=== PATIENT | male | born 1970 | race Caucasian/White ===

== ENCOUNTER 2016-08-26 08:13 | Inpatient (IN) | payer BC, OTHER ==
--- NOTE | 2016-08-20 16:37 | HP ---
HISTORY AND PHYSICAL: DATE OF SURGERY: 08/26/16 PROCEDURE: Left total hip arthroplasty. CHIEF COMPLAINT: Left hip pain. HISTORY OF PRESENT ILLNESS: Mr. Renteria is a 45-year-old gentleman who complains of left hip pain. Charlene mathur has failed conservative management and has elected to proceed with a left total hip arthroplasty w [facility] is scheduled for 08/26/16. PAST MEDICAL HISTORY: Asthma, hypothyroidism, and sleep apnea. PAST SURGICAL HISTORY: Deviated septum surgery x3, right elbow surgery, right knee arthroscopy x2, and appendectomy. CURRENT MEDICATIONS: 1. Topiramate. 2. Duloxetine. 3. Levothyroxine. 4. Montelukast. 5. Magnesium oxide. 6. Riboflavin. 7. Celebrex. 8. Oxycodone. ALLERGIES: No known drug allergies. FAMILY HISTORY: Rheumatoid arthritis, cancer and heart disease. SOCIAL HISTORY: He is a 45-year-old gentleman, he lives with his . 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 He does not smoke, use drugs or alcohol. REVIEW OF SYSTEMS: A complete 14-point review of systems is reviewed with the patient, it is positi ve for hypothyroidism. PHYSICAL EXAMINATION GENERAL: He is well developed, well nourished, he is in no acute distress. VITAL SIGNS: He stands 6 feet 1 inch tall, weighs 268 pounds. Blood pressure is 132/70, his heart rate is 76. HEENT: Normocephalic, atraumatic. NECK: Supple. No palpable lymph nodes. Trachea is midline. PULMONARY: Lungs are clear to auscultation bilaterally. No wheezes, rhonchi, or rales. CARDIO: Regular rate and rhythm. Strong S1 and S2. No murmurs, gallops, or rubs. No peripheral ed pal. ABDOMEN: Soft, nontender, and nondistended. MUSCULOSKELETAL: Left lower extremity, the skin is intact. He walks with a slightly antalgic type gait, favoring his left leg. He has limited internal and external rotation of his left hip. His lo wer extremity muscle group strengths are intact at 5/5. He has 2+ dorsalis pedis pulses and intact sensation. NEUROLOGIC: He is alert and oriented x3. Cranial nerves II through XII are intact. ASSESSMENT AND PLAN: Mr. Renteria is a 45-year-old gentleman with complaints of left hip pain. He gonzalez s failed conservative management and has elected to proceed with a left total hip arthroplasty. His surgery is scheduled for 08/26/[address] Ellsworth discussed the risks and benefits of the surgery at today's visit and all of his questions were answered. Coumadin, Percocet, and Colace we re sent to his pharmacy for postoperative pain control and DVT prophylaxis. He will follow up with Dr. Ellsworth 10 to 14 days after the surgery. TERESITA BINGHAM [id number]/[facility] #: [id number]
[~2016-08-26 08:13] MED LIST: Buffered Lidocaine 1% SYRIN* 3 ML/SYR SYRINGE INTRADERM ONE; Famotidine IV* 10 MG/ML 2 ML (20 mg) IV ONE; Famotidine IV* 10 MG/ML 2 ML (20 mg) ONE; Metoclopramide TAB* 10 MG ONE; Metoclopramide TAB* 10 MG PO ONE; ceFAZolin 2 GM PREMIX(*) 2 GM/50 ML BAG IVPB ONE
[2016-08-26] MEDS ORDERED: Propofol* 10 MG/ML 20 ML BTL IV PUSH ONE (09:44)
[2016-08-26] MEDS ORDERED: Dexamethasone IV* 4 MG/ML 1 ML (4 MG) ONE (09:44)
[2016-08-26] MEDS ORDERED: Midazolam* 1 MG/ML 2 ML VIAL (2 MG) ONE ×2 (09:44→10:41)
[2016-08-26] MEDS ORDERED: Propofol* 500 MG/50 ML BTL ONE (09:44)
[2016-08-26] MEDS ORDERED: Ketorolac INJ* 30 MG/ML 1 ML VIAL ONE (09:44)
[2016-08-26] MEDS ORDERED: Morphine PF AMP (0.5MG/ML)* 5 MG/10 ML AMP ONE (09:44)
[2016-08-26] MEDS ORDERED: Lidocaine 2% PF* 5 ML VIAL ONE (09:44)
[2016-08-26] MEDS ORDERED: fentaNYL* 50 MCG/ML 2 ML VIAL (100 MCG VIAL) ONE (09:44)
[2016-08-26] MEDS ORDERED: KETAMINE HCL* 50 MG/ML 10 ML VIAL ONE (09:44)
[2016-08-26] MEDS ORDERED: Bupivacaine 0.5% SDV PF* 30 ML VIAL ONE ×2 (09:44→11:56)
[2016-08-26] MEDS ORDERED: Ondansetron INJ* 2 MG/ML VIAL ONE (09:44)
[2016-08-26] MEDS ORDERED: Midazolam* 1 MG/ML 5 ML VIAL (5 MG) ONE (09:44)
[2016-08-26] MEDS ORDERED: ceFAZolin 1 GM in Dextrose (*) 1 GM/50 ML BAG IVPB ONE (10:46)
[2016-08-26] MEDS ORDERED: EPHEDrine (Pressors)* 50 MG/ML VIAL ONE (11:08)
[2016-08-26] MEDS ORDERED: Atropine 1MG/ML INJ* 1 ML VIAL ONE (11:08)
[2016-08-26] MEDS ORDERED: Phenylephrine IV* 40 MCG/ML 10 ML SYRINGE ONE (11:17)
[2016-08-26] MEDS ORDERED: Phenylephrine INJ* 10 MG/ML 1 ML VIAL (10 MG) ONE (11:37)
[2016-08-26] MEDS ORDERED: Ondansetron INJ* 2 MG/ML VIAL IV PRN ×3 (11:56→14:19)
[2016-08-26] MEDS ORDERED: Phenylephrine INJ* 50 MG in NS 0.9% 250 ML* 245 ML IV PRN (11:56)
[2016-08-26] MEDS ORDERED: fentaNYL* 50 MCG/ML 2 ML VIAL (100 MCG VIAL) IV PRN (11:56)
[2016-08-26] MEDS ORDERED: diPHENhydraMINE IV* 50 MG/ML 1 ml VIAL (BENADRYL) IV PRN ×2 (12:15→14:19)
[2016-08-26] MEDS ORDERED: Naloxone* 0.4 MG/ML 1 ML VIAL IV PRN (12:15)
[2016-08-26] MEDS ORDERED: Ketorolac INJ* 30 MG/ML 1 ML VIAL IV PRN (12:15)
[2016-08-26] MEDS ORDERED: oxyCODONE/Acetamin 5/325 MG* TAB PO PRN ×2 (12:15)
--- NOTE | 2016-08-26 13:19 | RAD ---
Indication: Left hip replacement Single view of the left hip taken in the operating room demonstrates acetabular cup in place. The femoral reamer is in place. IMPRESSION: Single intraoperative view of the left hip was obtained for alignment.
[2016-08-26] MEDS ORDERED: Acetaminophen TAB* 325 MG PO PRN (14:14)
[2016-08-26] MEDS ORDERED: Ondansetron TAB* 4 MG PO PRN (14:19)
[2016-08-26] MEDS ORDERED: Morphine INJ* 10 MG/ML 1 ML SYRINGE IV PRN (14:19)
[2016-08-26] MEDS ORDERED: diPHENhydraMINE PO* 25 MG PO PRN (14:19)
[2016-08-26] MEDS ORDERED: Polyethylene Glycol 3350* 17 GM PACKET PO PRN (14:19)
[2016-08-26] MEDS ORDERED: oxyCODONE TAB* 5 MG TAB PO PRN (14:19)
[2016-08-26] MEDS ORDERED: LACTULOSE* 30 ML UDC PO PRN (14:19)
[2016-08-26] MEDS ORDERED: Bisacodyl SUPP* 10 MG SUPP PR PRN (14:19)
[2016-08-26 14:25] LABS: Hematocrit 31 % (42-52); Hemoglobin 10.3 g/dl (14.0-18.0)
[2016-08-26] MEDS ORDERED: Albuterol 2.5 MG/3 ML NEB.SOL* (0.083%) INH PRN (14:56)
--- NOTE | 2016-08-26 15:16 | RAD ---
INDICATION: Left hip arthroplasty COMPARISON: June 18, 2016 TECHNIQUE: An AP view of the pelvis and AP views of the hip in neutral and abducted position were obtained FINDINGS: Bones: There are no acute bony findings. Joint spaces: There is left hip arthroplasty. The prosthesis appears well seated. There is hypertrophic change about the right acetabulum with several small detached osteophytes SI joints/symphysis: The SI joints and symphysis are intact. Other: None IMPRESSION: LEFT HIP ARTHROPLASTY
[2016-08-26] MEDS ORDERED: Warfarin TAB(*) 6 MG PO ONE (17:00)
[2016-08-26] MEDS: ceFAZolin 1 GM in Dextrose (*) 1 GM/50 ML BAG IVPB SCH (19:08)
[2016-08-26] MEDS ORDERED: LR IV ONE (20:04)
[2016-08-26] MEDS ORDERED: DiMENhydriNATE IV* 50 MG/ML VIAL IV PUSH ONE (20:04)
[2016-08-26] MEDS: Magnesium Hydroxide LIQ* 30 ML UDC PO SCH (21:05)
[2016-08-26] MEDS: Gabapentin CAP(*) 400 MG PO SCH (21:05)
[2016-08-26] MEDS: Docusate CAP* 100 MG PO SCH (21:05)
[2016-08-26] MEDS: Topiramate TAB(*) 25 MG PO SCH (21:05)
[2016-08-26] MEDS: DULoxetine DR CAP* 20 MG CAP.DR PO SCH (21:06)
[2016-08-26 21:31] LABS: Hematocrit 30 % (42-52); Hemoglobin 9.6 g/dl (14.0-18.0)
--- NOTE | 2016-08-26 22:05 | CONS ---
CONSULTATION REPORT: DATE OF CONSULT: 08/26/16 PRIMARY CARE PROVIDERS: Dr. Wily Muller and Marta Mejia NP. ATTENDING PHYSICIAN WHILE IN THE HOSPITAL: Yessenia Ortiz MD (report dictated by Deo Singh NP). REQUESTING PHYSICIAN IN CONSULT: Dr. Ellsworth. REASON FOR MEDICAL CONSULTATION: Evaluation of the patient's comorbid medical conditions. HISTORY OF PRESENT ILLNESS: Mr. Renteria is a 45-year-old male patient. He has a history of RONNA, hypothyroidism, asthma, and a history of migraines. He comes in to the orthopedic services today for an elective total hip replacement. He according to the orthopedics notes has been having pain in his left hip for sometime and he was failing conservative management of the pain and it was felt that he would benefit from elective total hip replacement which he underwent today. During the case, it was noted that he did have a fair amount of bleeding and because of this, we were also asked to evaluate. He does carry a history of RONNA, hypothyroidism, asthma, and migraines. He was evaluated in the PACU. He states he is feeling well, just feels drowsy. Denies feeling lightheaded. Denies having any dizziness. Denies having any chest pain. He says he does not feel short of breath and he says he does not feel like he is going to pass out. He states that he does not feel hungry or nauseous. Again, because of his medical complexity and the increased amount of EBL during the case, we were asked to evaluate in consult. PAST MEDICAL HISTORY: Significant for: 1. RONNA. 2. Hypothyroidism. 3. Asthma. 4. Migraines. SURGICAL HISTORY: 1. Just had a right total hip replacement done today. 2. He also has a history of appendectomy. 3. He has had right elbow surgery. 4. He has also had 2 knee arthroscopies. HOME MEDICATIONS: According to the list provided include: 1. Singulair 10 mg daily. 2. Magnesium oxide 100 mg p.o. b.i.d. 3. Synthroid 75 mcg daily. 4. Neurontin 400 mg at bedtime. 5. Cymbalta 20 mg daily at bedtime. 6. Percocet 1 tablet every 4 hours as needed. 7. Topamax 50 mg p.o. daily. 8. Riboflavin 400 mg daily. 9. Celebrex 100 mg p.o. b.i.d. ALLERGIES TO MEDICATIONS: Include no known drug allergies. FAMILY HISTORY: His mother from heart disease and his father from cancer. SOCIAL HISTORY: He does not smoke, does not drink. He is . Surrogate decision maker is his . REVIEW OF SYSTEMS: There is no documented fever. He denied any significant weight change. There was no double vision. He denies having any ear discharge. There is no rhinorrhea. No sore throat. No thyroid enlargement. Denies having any chest pain. There is no orthopnea. There is no nocturnal dyspnea. There is no abdominal pain. He denies having any nausea. He denies having any vomiting. No dysuria. No frequency. No loss of consciousness. No pruritus. No skin ulcerations. Review of 14 systems completed, all others negative. PHYSICAL EXAM: Vital Signs: Blood pressure 95/65 with a pulse of 92, respirations 14, O2 sat 96%, and temperature was 97.5. General: At this time, Mr. Renteria is a 45-year-old male patient. He does appear to be in any acute distress. He is sitting in the ER stretcher. HEENT: Head atraumatic and normocephalic. Eyes: EOMs are intact. Sclerae are anicteric and not pale. Throat: Oral mucosa appears to be moist. No oropharyngeal erythema. Neck: Supple. Heart: Sounds S1, S2. Regular rate and rhythm. No murmurs, rubs, or gallops. Lungs: Clear to auscultation bilaterally. No wheezes, rales, or rhonchi. Abdomen: Soft, flat, nontender. Bowel sounds present. Extremities: Distal CSM checks are intact. He is moving the upper extremities with 5/5 strength. The lower extremities are in a hip immobilizer pillow. Neurologically, he is awake, he is alert, and he is oriented x3. Press Machine Operator are equal. Tongue midline. No gross focal deficits. Skin is intact with the exception he has an incision to the left hip which is covered with an ABD and is clean, dry, and intact. DIAGNOSTIC STUDIES/LAB DATA: His hemoglobin is 10.3, hematocrit is 10. The preoperative labs reveal INR 1.02, PTT of 3.35. He was O negative. His WBC was 7.5, RBC of 5.14, hemoglobin 14.8, hematocrit of 40, platelet count of 246. His sodium was 139, potassium was 3.8, chloride 106, bicarb 25, BUN 12, creatinine 1.1, albumin 4.0. Preoperative EKG showed a right bundle branch block with a rate of 61. Preoperative chest x-ray showed no active cardiopulmonary disease. Old medical records were reviewed. ASSESSMENT AND PLAN: Mr. Renteria is a 45-year-old male patient coming in to the orthopedic services today for an elective left total hip replacement. Hospitalist service was asked to evaluate in consult. Recommendations at this point are: 1. Status post left total hip replacement: At this point, I will defer the management to Dr. Ellsworth and her team. We will follow his H and H closely and transfuse as needed. He appears to be asymptomatic, but we will monitor him closely. 2. Obstructive sleep apnea: I would recommend putting him on continuous pulse ox for at least 24 hours and continuing the CPAP. 3. Hypothyroidism: Continue medications as prescribed. 4. Asthma: I did order p.r.n. albuterol. 5. Migraines: Continue with his current medical regimen. 6. DVT prophylaxis: Defer to the primary team. 7. Fluids, electrolytes, and nutrition: I would recommend a regular diet. 8. Code status: Full code. TIME SPENT: Time spent on the consult was 60 minutes; greater than half the time was spent [id number] with the patient obtaining my history and physical, other half the time spent going over the plan of care with the patient and implementing plan of care. I did discuss the plan of care with my attending, Dr. Ortiz; she is in agreement. DEO SINGH NP CC: Dr. Wily Muller; Marta Mejia NP; Dr. Ellsworth* [id number]/[facility] #: [id number] [facility] NETWORKAlexia
[2016-08-27] MEDS: ceFAZolin 1 GM in Dextrose (*) 1 GM/50 ML BAG IVPB SCH ×2 (04:01→10:17)
[2016-08-27] MEDS: oxyCODONE/Acetamin 5/325 MG* TAB PO PRN ×5 (04:03→22:25)
[2016-08-27 06:53] LABS: Hematocrit 25 % (42-52); Hemoglobin 8.2 g/dl (14.0-18.0)
[2016-08-27 07:13] LABS: BUN/Creatinine Ratio 10.4 (8-20); Calcium 7.8 mg/dL (8.6-10.3); EGFR African American 41.2 (>60); Potassium 4.2 mmol/L (3.5-5.0)
--- NOTE | 2016-08-27 07:54 | PN ---
Progress Note - Progress Note SOAP: Subjective: Pt. is feeling weak and dizzy this morning. Objective: LLE - dressing changed, mod amount ss drainage on dressing, compression dressing applied. thigh swollen but soft. distally nvi. Vital Signs: Temp Pulse Resp BP Pulse Ox 98.2 F 90 16 93/49 94 08/27/16 03:37 08/27/16 03:37 08/27/16 06:03 08/27/16 03:37 08/27/16 03:37 Laboratory Results - last 24 hr 08/26/16 08/26/16 08/27/16 14:20 21:16 06:14 Hgb 10.3 L 9.6 L 8.2 L Hct 31 L 30 L 25 L INR (Anticoag Therapy) Sodium Potassium Chloride Carbon Dioxide Anion Gap BUN Creatinine Est GFR ( Amer) Est GFR (Non-Af Amer) BUN/Creatinine Ratio Glucose Calcium 08/27/16 08/27/16 06:18 06:18 Hgb Hct INR (Anticoag Therapy) 1.21 H Sodium 135 Potassium 4.2 Chloride 104 Carbon Dioxide 25 Anion Gap 6 BUN 23 Creatinine 2.22 H Est GFR ( Amer) 41.2 Est GFR (Non-Af Amer) 32.0 BUN/Creatinine Ratio 10.4 Glucose 158 H Calcium 7.8 L Assessment: 45 yo M pod 1 s/p LTHA with abnormally large amount of intraop bleeding. Plan: wbat with post hip precautions pt/ot 2 u prbc now will d/w hematology, possible consult inpatient vs outpatient. d/c lovenox
[2016-08-27] MEDS: Magnesium Hydroxide LIQ* 30 ML UDC PO SCH ×2 (08:02→21:45)
[2016-08-27] MEDS: Levothyroxine TAB* 75 MCG TAB PO SCH (08:04)
[2016-08-27] MEDS: Docusate CAP* 100 MG PO SCH ×2 (08:46→22:01)
--- NOTE | 2016-08-27 12:34 | OP ---
OPERATIVE REPORT: DATE OF OPERATION: 08/26/16 DATE OF : 68 SURGEON: Ashley Ellsworth MD BRICKMASON CONTRACTOR: TERESITA Graham ANESTHESIOLOGIST: Dr. Kraus. ANESTHESIA: Spinal. PRE-OP DIAGNOSIS: Severe end-stage degenerative osteoarthritis of the left hip joint. POST-OP DIAGNOSIS: Severe end-stage degenerative osteoarthritis of the left hip joint. OPERATIVE PROCEDURE: Left total hip arthroplasty. COMPLICATIONS: None. ESTIMATED BLOOD LOSS: 2000 cc. SPECIMENS: Femoral head and acetabular reaming, sent to pathology. HARDWARE: This is a Alburtis uncemented total hip arthroplasty hardware. For the acetabular cup, a 58 Tritanium Cluster Hole Shell 120 mm screw was used. A 40F 0- degree Trident X3 liner. An Accola de TMZF size 4.5 with 127-degree neck was used for the femoral stem. A 40 +0 Biolox ceramic femoral head. INDICATIONS: Brief History/Indication: Mr. Renteria is a 45-year-old gentleman with years of increasi ngly severe left hip pain. He failed conservative treatment with antiinflammatories, pain medicatio n, intraarticular injection, and physical therapy. Radiographs confirmed end-stage arthritis with f emoral acetabular impingement. Due to decreased quality of life and chronic pain, the patient elect ed to have a left total hip arthroplasty. Informed consent was obtained from the patient. He understood the risks of the procedure included b ut were not limited to bleeding, infection, damage to nearby structures, continued pain, need for fu rther surgery, intraoperative fracture, nerve palsy, hardware failure or loosening, dislocation, leg length discrepancy, stroke, heart attack, blood clot, and . His wished to proceed. FINDINGS: Intraoperative Findings: Intraoperatively, the patient had extremely tight gluteus tendo n, which made presentation of the acetabulum and retraction very difficult. He had end-stage arthri tis of both the femoral head and acetabulum with significant amount of osteophyte formation around t he acetabulum. The acetabulum was shallow. The patient was also noted to have significant bleeding compared to normal experience. DESCRIPTION OF PROCEDURE: Mr. Renteria was identified in the preanesthesia unit. His left lower extre mity was marked as the correct operative site. Informed consent was signed and placed in the chart. The patient was taken to the operating room and placed under spinal anesthesia. Porter catheter wa s placed. The patient was placed in the right lateral decubitus position on the PEG board and all b selena prominences were well padded. Left lower extremity was prepped and dapped in the usual sterile fashion. Preop time-out was made to correctly identify the patient side and site. Appropriate perioperative antibiotics were given within 1 hour of incision. A 15- cm posterior inci tatianna was made with a 10 blade and carried down to the lateral fascial layer. Immediately, it was ev ident that the patient bled more than the average patient. Lateral fascial layer was incised in tisha e with the skin incision. Charnley retractor was placed. The piriformis and conjoined tendons were identified and elevated off the posterolateral femur using electrocautery. These were tagged with two #5 Ethibond. Next electrocautery was used to make a sta ndard posterolateral capsular flap and this was also tagged with two #5 Ethibond. The hip was caref ully dislocated. Lesser trochanter to the center of the femoral head measured 53 mm. Oscillating sa w was used to make the appropriate femoral neck cut. Femoral head was carefully removed and sent to pathology. After appropriate placement of retractors, the acetabulum was visualized. The greater trochanter was quite posterior and it was difficult to retract the femur anteriorly. Long-handled k nife was used to remove any remaining labrum from the acetabular rim. A significant amount of osteo phyte formation around the superior acetabulum and anterior acetabulum was noted. The acetabulum wa s noted to be quite shallow. The acetabulum was sequentially reamed up to a size 57. The 57 trial had satisfactory position and stability. A 58 cluster hole Tritanium shell was chosen as the final implant. This was impacted into the acetabulum without difficulty. There was a stable cup. Satisf actory anteversion and abduction angle. A 20-mm screw was placed in the superior posterior quadrant for extra stability. A 40F of 0-degree Trident X3 polyethylene liner was chosen. This was impacte d into the acetabular cup without difficulty. Stability of the liner was checked and rechecked and n oted to be stable. Attention was next turned to preparation of the proximal femur. Retractors were placed and presenta tion of the proximal femur was made quite difficult by the patient's anatomy. Box cut osteotome and canal finder were used to enter the proximal femur. The femur was sequentiall y broached to a size 4.5, which had excellent fit. A 127- degree neck trial was chosen with a 40 +0 femoral head trail. The hip was reduced and taken through range of motion. The hip was stable in all positions. There was approximate leg length and good soft tissue tension. The hip was carefully dislocated. All trials were carefully removed. Final implant chosen was an A ccolade TMZF size 4.5 with a 127-degree neck. This was impacted into the femoral canal without diff iculty. There was satisfactory stability and anteversion. A 40 +0 ceramic Biolox delta head and sl eeve were chosen. These were impacted on to the femoral neck without difficulty. Hip was reduced and the hip was stable in all positions. The hip was copiously irrigated with steri le saline. Previously tagged capsule and tendons were reapproximated through the posterolateral fem ur through 2 trochanteric drill holes. The posterior capsular repair was excellent. The hip was onc e again copiously irrigated with sterile saline. The lateral fascial layer was closed using interru pted #1 Vicryl's. The rest of the incision was closed in a layered fashion using 0 and 2-0 Vicryl's . Skin was closed using running 3-0 Monocryl and Dermabond. Adaptic, 4x4's, and paper tape were us ed to cover the incision. The patient's anesthesia was reversed without difficulty. He was taken to the PACU in stable condit ion. Intended weightbearing will be weightbearing as tolerated with posterior hip precautions. Int ended DVT prophylaxis will likely be aspirin. I will avoid Lovenox due to the patient's bleeding ten dency intraoperatively. We will check the hematocrit in PACU. Of note, I will likely be referring the patient for hematology consult as an outpatient as he likely has an undiagnosed bleeding disorder. [id number]/[facility] #: [id number]
--- NOTE | 2016-08-27 13:32 | PN ---
Subjective Date of Service: 08/27/16 Interval History: Patient seen this morning. Says he felt a bit dizzy this morning but this is improving with transfusion. Hip feels "sore". States he has had surgeries in the past including laporoscopic appendectomy with no bleeding issues that he is aware of. Did note that last fall he had a health screening at his work and after a finger prick had some prolonged bleeding and was told his blood is "thin ". Family History: Unchanged from Admission Social History: Unchanged from Admission Past Medical History: Unchanged from Admission Objective Active Medications: Acetaminophen (Tylenol Tab*) 650 mg PO Q4H PRN Albuterol (Ventolin 2.5 Mg/3 Ml Neb.Elizabeth*) 2.5 mg INH Q2H PRN Bisacodyl (Dulcolax Supp*) 10 mg VT DAILY PRN Diphenhydramine HCl (Benadryl Iv*) 12.5 mg IV Q6H PRN Diphenhydramine HCl (Benadryl Po*) 25 mg PO Q6H PRN Docusate Sodium (Colace Cap*) 100 mg PO BID DELVIS Duloxetine HCl (Cymbalta Cap*) 20 mg PO BEDTIME DELVIS Gabapentin (Neurontin Cap(*)) 400 mg PO BEDTIME DELVIS Lactated Ringer's (Lactated Ringers 1000 Ml Bag*) 1,000 mls @ 100 mls/hr IV PER RATE DELVIS Lactulose (Lactulose*) 30 ml PO Q6H PRN Levothyroxine Sodium (Synthroid Tab*) 75 mcg PO DAILY DELVIS Magnesium Hydroxide (Milk Of Magnesia Liq*) 30 ml PO BID DELVIS Morphine Sulfate (Morphine Inj (Syringe)*) 5 mg IV Q2H PRN Ondansetron HCl (Zofran Inj*) 4 mg IV Q6H PRN Ondansetron HCl (Zofran Tab*) 4 mg PO Q6H PRN Oxycodone HCl (Roxycodone Tab*) 10 mg PO Q4H PRN Oxycodone/Acetaminophen (Percocet 5/325 Tab*) 2 tab PO Q4H PRN Pharmacy Profile Note (Coumadin Daily Reminder*) 1 note FOLLOW UP 1700 DELVIS Polyethylene Glycol/Electrolytes (Miralax*) 17 gm PO DAILY PRN Topiramate (Topamax(*)) 50 mg PO BEDTIME DELVIS Warfarin Sodium (Coumadin Tab(*)) 6 mg PO ONCE@1700 ONE Vital Signs 08/26/16 08/26/16 08/26/16 14:08 14:10 14:15 Temperature 97.5 F Pulse Rate 89 88 89 Respiratory 16 16 16 Rate Blood Pressure 101/64 101/66 93/61 (mmHg) O2 Sat by Pulse 98 97 97 Oximetry 08/26/16 08/26/16 08/26/16 19:58 20:00 20:15 Temperature 97.1 F 97.8 F Pulse Rate 88 86 Respiratory 16 17 16 Rate Blood Pressure 86/55 97/57 (mmHg) O2 Sat by Pulse 98 97 97 Oximetry 08/27/16 08/27/16 10:54 13:21 Temperature 98.2 F Pulse Rate 88 Respiratory 18 18 Rate Blood Pressure 101/53 (mmHg) O2 Sat by Pulse 93 Oximetry Oxygen Devices in Use Now: None Appearance: Middle-aged, M, laying in bed in NAD Eyes: No Scleral Icterus Ears/Nose/Mouth/Throat: Mucous Membranes Moist Neck: NL Appearance and Movements; NL JVP Respiratory: Symmetrical Chest Expansion and Respiratory Effort, Clear to Auscultation Cardiovascular: NL Sounds; No Murmurs; No JVD, RRR Abdominal: NL Sounds; No Tenderness; No Distention Lymphatic: No Cervical Adenopathy Extremities: No Edema, - - LLE with dressing in place, c/d/i Skin: No Rash or Ulcers Neurological: Alert and Oriented x 3 Lines/Tubes/Other Access: Clean, Dry and Intact Porter Result Diagrams: 08/27/16 06:14 08/27/16 06:18 Assess/Plan/Problems-Billing Assessment: 45 yo M with hx of obesity, RONNA, hypothyroidism, asthma, migraines s/p R CHARANJIT, course complicated by excessive bleeding and TAURUS - Patient Problems (1) S/P total hip arthroplasty Current Visit: Yes Comment: POD #1, management as per ortho (2) Acute blood loss anemia Current Visit: Yes Comment: EBL 2000 ml during surgery. Hb down to 8.2 from 14.8 as outpatient. Receiving 2 units currently, will continue to monitor. Dr. Ellsworth to get in touch with hematology regarding ?bleeding disorder. Patient had outpatient INR, PT and PTT that were WNL, will defer further work-up to Hematology. (3) TAURUS (acute kidney injury) Current Visit: Yes Comment: Creatinine 2.2 today form baseline 1.1 on outpatient labs. Likely 2/2 blood loss. Receiving 2u PRBC, agree with continued LR. Monitor UOP. (4) RONNA (obstructive sleep apnea) Current Visit: Yes Comment: continue CPAP (5) Hypothyroidism Current Visit: Yes Comment: Continue synthroid
[2016-08-27] MEDS ORDERED: Enoxaparin(*) 30 MG/0.3 ML SYR SUBCUT SCH (15:00)
[2016-08-27] MEDS ORDERED: Warfarin TAB(*) 6 MG PO ONE (17:00)
[2016-08-27] MEDS: DULoxetine DR CAP* 20 MG CAP.DR PO SCH (22:01)
[2016-08-27] MEDS: Topiramate TAB(*) 25 MG PO SCH (22:02)
[2016-08-27] MEDS: Gabapentin CAP(*) 400 MG PO SCH (22:02)
[2016-08-28] MEDS: oxyCODONE/Acetamin 5/325 MG* TAB PO PRN ×5 (02:30→22:05)
[2016-08-28 07:52] LABS: Hematocrit 26 % (42-52); Hemoglobin 8.6 g/dl (14.0-18.0)
[2016-08-28 08:11] LABS: BUN/Creatinine Ratio 10.7 (8-20); Calcium 7.9 mg/dL (8.6-10.3); EGFR African American 40.8 (>60); EGFR Non-African American 31.7 (>60); Potassium 3.5 mmol/L (3.5-5.0)
[2016-08-28] MEDS: Levothyroxine TAB* 75 MCG TAB PO SCH (08:29)
[2016-08-28] MEDS: Docusate CAP* 100 MG PO SCH ×2 (08:29→22:00)
[2016-08-28] MEDS: Magnesium Hydroxide LIQ* 30 ML UDC PO SCH ×2 (09:08→22:02)
--- NOTE | 2016-08-28 09:54 | PN ---
Progress Note - Progress Note SOAP: Subjective: Pt. is alert, feeling better today. Objective: LLE - dressing c/d/i. distally nvi. thigh swollen but compressible. Vital Signs: Temp Pulse Resp BP Pulse Ox 98.2 F 81 16 106/60 93 08/28/16 07:37 08/28/16 07:37 08/28/16 08:29 08/28/16 07:37 08/28/16 07:37 Laboratory Results - last 24 hr 08/26/16 08/28/16 08/28/16 21:16 07:32 07:32 Hgb 8.6 L Hct 26 L INR (Anticoag Therapy) 1.63 H Sodium Potassium Chloride Carbon Dioxide Anion Gap BUN Creatinine Est GFR ( Amer) Est GFR (Non-Af Amer) BUN/Creatinine Ratio Glucose Calcium Blood Type O Positive Antibody Screen Negative Crossmatch See Detail 08/28/16 07:32 Hgb Hct INR (Anticoag Therapy) Sodium 136 Potassium 3.5 Chloride 104 Carbon Dioxide 26 Anion Gap 6 BUN 24 Creatinine 2.24 H Est GFR ( Amer) 40.8 Est GFR (Non-Af Amer) 31.7 BUN/Creatinine Ratio 10.7 Glucose 103 H Calcium 7.9 L Blood Type Antibody Screen Crossmatch Assessment: 45 yo M pod 2 s/p LTHA Plan: wbat with post hip precautions. pt/ot no lovenox 4 mg coumadin tonight, goal inr 2.0. d/w Dr. Boyer, she will see him as outpatient for possible bleeding disorder and agrees with coumadin hct stable plan d/c to home tomorrow with vns
--- NOTE | 2016-08-28 11:19 | PN ---
Subjective Date of Service: 08/28/16 Interval History: Patient seen this morning. Says he is fatigued after PT this morning. No dizziness. Urinating well. Family History: Unchanged from Admission Social History: Unchanged from Admission Past Medical History: Unchanged from Admission Objective Active Medications: Acetaminophen (Tylenol Tab*) 650 mg PO Q4H PRN PRN Reason: mild pain or fever Albuterol (Ventolin 2.5 Mg/3 Ml Neb.Elizabeth*) 2.5 mg INH Q2H PRN PRN Reason: SOB/WHEEZING Bisacodyl (Dulcolax Supp*) 10 mg PA DAILY PRN PRN Reason: constipation Diphenhydramine HCl (Benadryl Iv*) 12.5 mg IV Q6H PRN PRN Reason: PRURITIS Diphenhydramine HCl (Benadryl Po*) 25 mg PO Q6H PRN PRN Reason: INSOMNIA Docusate Sodium (Colace Cap*) 100 mg PO BID [facility] Last Admin: 08/28/16 08:29 Dose: 100 mg Duloxetine HCl (Cymbalta Cap*) 20 mg PO BEDTIME [facility] Last Admin: 08/27/16 22:01 Dose: 20 mg Gabapentin (Neurontin Cap(*)) 400 mg PO BEDTIME [facility] Last Admin: 08/27/16 22:02 Dose: 400 mg Lactated Ringer's (Lactated Ringers 1000 Ml Bag*) 1,000 mls @ 100 mls/hr IV PER RATE [facility] Last Admin: 08/28/16 04:00 Dose: 100 mls/hr Lactulose (Lactulose*) 30 ml PO Q6H PRN PRN Reason: constipation Levothyroxine Sodium (Synthroid Tab*) 75 mcg PO DAILY [facility] Last Admin: 08/28/16 08:29 Dose: 75 mcg Magnesium Hydroxide (Milk Of Magnesia Liq*) 30 ml PO BID [facility] Last Admin: 08/28/16 09:08 Dose: Not Given Morphine Sulfate (Morphine Inj (Syringe)*) 5 mg IV Q2H PRN PRN Reason: PAIN Ondansetron HCl (Zofran Inj*) 4 mg IV Q6H PRN PRN Reason: nausea Last Admin: 08/27/16 04:07 Dose: 4 mg Ondansetron HCl (Zofran Tab*) 4 mg PO Q6H PRN PRN Reason: NAUSEA Oxycodone HCl (Roxycodone Tab*) 10 mg PO Q4H PRN PRN Reason: moderate to severe pain Oxycodone/Acetaminophen (Percocet 5/325 Tab*) 2 tab PO Q4H PRN PRN Reason: moderate pain Last Admin: 08/28/16 08:29 Dose: 2 tab Pharmacy Profile Note (Coumadin Daily Reminder*) 1 note FOLLOW UP 1700 [facility] Last Admin: 08/27/16 16:47 Dose: 1 note Polyethylene Glycol/Electrolytes (Miralax*) 17 gm PO DAILY PRN PRN Reason: Constipation Topiramate (Topamax(*)) 50 mg PO BEDTIME [facility] Last Admin: 08/27/16 22:02 Dose: 50 mg Warfarin Sodium (Coumadin Tab(*)) 4 mg PO ONCE@1700 ONE PRN Reason: Protocol Stop: 08/28/16 17:01 Vital Signs 08/27/16 08/27/16 08/27/16 13:21 13:44 14:05 Temperature 98.1 F 98.3 F Pulse Rate 95 82 Respiratory 18 18 Rate Blood Pressure 93/57 113/59 (mmHg) O2 Sat by Pulse 93 92 Oximetry 08/28/16 08/28/16 07:37 08:29 Temperature 98.2 F Pulse Rate 81 Respiratory 12 16 Rate Blood Pressure 106/60 (mmHg) O2 Sat by Pulse 93 Oximetry Oxygen Devices in Use Now: None Appearance: Middle-aged, M, laying in bed in NAD Eyes: No Scleral Icterus Ears/Nose/Mouth/Throat: Mucous Membranes Moist Neck: NL Appearance and Movements; NL JVP Respiratory: Symmetrical Chest Expansion and Respiratory Effort, Clear to Auscultation Cardiovascular: NL Sounds; No Murmurs; No JVD, RRR Abdominal: NL Sounds; No Tenderness; No Distention Lymphatic: No Cervical Adenopathy Extremities: - - LLE with dressing in place, c/d/i, TTP around lateral thigh Neurological: Alert and Oriented x 3 Result Diagrams: 08/28/16 07:32 08/28/16 07:32 Assess/Plan/Problems-Billing Assessment: 45 yo M with hx of obesity, RONNA, hypothyroidism, asthma, migraines s/p R CHARANJIT, course complicated by excessive bleeding and TAURUS - Patient Problems (1) S/P total hip arthroplasty Current Visit: Yes Comment: POD #2, management as per ortho (2) Acute blood loss anemia Current Visit: Yes Comment: EBL 2000 ml during surgery. Received 2 units /. Hb stable. Patient to be set up with heme as outpatient ?bleeding disorder. (3) TAURUS (acute kidney injury) Current Visit: Yes Comment: Creatinine 2.4 today, baseline 1.1 on outpatient labs. Likely 2/2 blood loss. Check urine lytes. May have some mild ATN at this point. Will need continued outpatient monitoring of renal function. Avoid nephrotoxic medications. (4) RONNA (obstructive sleep apnea) Current Visit: Yes Comment: continue CPAP (5) Hypothyroidism Current Visit: Yes Comment: Continue synthroid
[2016-08-28] MEDS ORDERED: Warfarin TAB(*) 4 MG PO ONE (17:00)
[2016-08-28] MEDS: DULoxetine DR CAP* 20 MG CAP.DR PO SCH (22:00)
[2016-08-28] MEDS: Topiramate TAB(*) 25 MG PO SCH (22:00)
[2016-08-28] MEDS: Gabapentin CAP(*) 400 MG PO SCH (22:00)
[2016-08-29] MEDS: oxyCODONE/Acetamin 5/325 MG* TAB PO PRN ×2 (03:08→12:15)
[2016-08-29 07:03] LABS: Hematocrit 24 % (42-52); Hemoglobin 7.8 g/dl (14.0-18.0)
[2016-08-29 07:22] LABS: Albumin 2.8 g/dL (3.2-5.2); BUN/Creatinine Ratio 9.1 (8-20); Calcium 7.9 mg/dL (8.6-10.3); EGFR African American 47.3 (>60); EGFR Non-African American 36.8 (>60); Globulin 2.4 g/dL (2-4); Total Bilirubin 0.3 mg/dL (0.2-1.0); Total Protein 5.2 g/dL (6.4-8.9)
[2016-08-29 07:45] VITALS: BP 111/61
--- NOTE | 2016-08-29 08:59 | PN ---
Subjective Date of Service: 08/29/16 Interval History: Pt feels well. Feels ready to go home. Family History: Unchanged from Admission Social History: Unchanged from Admission Past Medical History: Unchanged from Admission Objective Active Medications: Acetaminophen (Tylenol Tab*) 650 mg PO Q4H PRN PRN Reason: mild pain or fever Albuterol (Ventolin 2.5 Mg/3 Ml Neb.Elizabeth*) 2.5 mg INH Q2H PRN PRN Reason: SOB/WHEEZING Bisacodyl (Dulcolax Supp*) 10 mg RI DAILY PRN PRN Reason: constipation Diphenhydramine HCl (Benadryl Iv*) 12.5 mg IV Q6H PRN PRN Reason: PRURITIS Diphenhydramine HCl (Benadryl Po*) 25 mg PO Q6H PRN PRN Reason: INSOMNIA Docusate Sodium (Colace Cap*) 100 mg PO BID [facility] Last Admin: 08/28/16 22:00 Dose: 100 mg Duloxetine HCl (Cymbalta Cap*) 20 mg PO BEDTIME [facility] Last Admin: 08/28/16 22:00 Dose: 20 mg Gabapentin (Neurontin Cap(*)) 400 mg PO BEDTIME [facility] Last Admin: 08/28/16 22:00 Dose: 400 mg Lactated Ringer's (Lactated Ringers 1000 Ml Bag*) 1,000 mls @ 100 mls/hr IV PER RATE [facility] Last Admin: 08/29/16 05:15 Dose: 100 mls/hr Lactulose (Lactulose*) 30 ml PO Q6H PRN PRN Reason: constipation Levothyroxine Sodium (Synthroid Tab*) 75 mcg PO DAILY@0600 [facility] Magnesium Hydroxide (Milk Of Magnesia Liq*) 30 ml PO BID [facility] Last Admin: 08/28/16 22:02 Dose: Not Given Morphine Sulfate (Morphine Inj (Syringe)*) 5 mg IV Q2H PRN PRN Reason: PAIN Ondansetron HCl (Zofran Inj*) 4 mg IV Q6H PRN PRN Reason: nausea Last Admin: 08/27/16 04:07 Dose: 4 mg Ondansetron HCl (Zofran Tab*) 4 mg PO Q6H PRN PRN Reason: NAUSEA Oxycodone HCl (Roxycodone Tab*) 10 mg PO Q4H PRN PRN Reason: moderate to severe pain Oxycodone/Acetaminophen (Percocet 5/325 Tab*) 2 tab PO Q4H PRN PRN Reason: moderate pain Last Admin: 08/29/16 03:08 Dose: 2 tab Pharmacy Profile Note (Coumadin Daily Reminder*) 1 note FOLLOW UP 1700 [facility] Last Admin: 08/28/16 17:54 Dose: 1 note Polyethylene Glycol/Electrolytes (Miralax*) 17 gm PO DAILY PRN PRN Reason: Constipation Topiramate (Topamax(*)) 50 mg PO BEDTIME [facility] Last Admin: 08/28/16 22:00 Dose: 50 mg Vital Signs 08/28/16 08/28/16 08/28/16 10:29 11:30 13:12 Temperature 97.9 F Pulse Rate 80 Respiratory 14 16 16 Rate Blood Pressure 109/56 (mmHg) O2 Sat by Pulse 90 Oximetry 08/28/16 08/28/16 08/28/16 15:16 17:53 18:14 Temperature 97.9 F Pulse Rate 89 89 Respiratory 16 16 16 Rate Blood Pressure 103/56 (mmHg) O2 Sat by Pulse 94 94 Oximetry 08/28/16 08/28/16 08/28/16 19:28 19:42 22:00 Temperature 97.9 F Pulse Rate 94 Respiratory 18 16 Rate Blood Pressure 107/58 (mmHg) O2 Sat by Pulse 90 Oximetry 08/28/16 08/28/16 08/29/16 22:05 23:50 00:05 Temperature 98.5 F Pulse Rate 87 Respiratory 16 16 18 Rate Blood Pressure 108/57 (mmHg) O2 Sat by Pulse 92 Oximetry 08/29/16 08/29/16 08/29/16 03:08 03:18 05:08 Temperature 98.2 F Pulse Rate 80 Respiratory 16 16 16 Rate Blood Pressure 107/59 (mmHg) O2 Sat by Pulse 90 Oximetry 08/29/16 07:30 Temperature 98.2 F Pulse Rate 81 Respiratory 20 Rate Blood Pressure 111/61 (mmHg) O2 Sat by Pulse 93 Oximetry Oxygen Devices in Use Now: None Appearance: 45 yo M in Nad, AOx3 Eyes: No Scleral Icterus, PERRLA Ears/Nose/Mouth/Throat: NL Teeth, Lips, Gums, Mucous Membranes Moist Neck: NL Appearance and Movements; NL JVP, Trachea Midline Respiratory: Symmetrical Chest Expansion and Respiratory Effort, Clear to Auscultation Cardiovascular: NL Sounds; No Murmurs; No JVD, No Edema Abdominal: NL Sounds; No Tenderness; No Distention, No Hepatosplenomegaly Lymphatic: No Cervical Adenopathy Extremities: No Clubbing, Cyanosis, - - mild left post op hip edema. Skin: No Nodules or Sclerosis, - - left hip post op dressings not removed Neurological: Alert and Oriented x 3, NL Muscle Strength and Tone Result Diagrams: 08/29/16 06:47 08/29/16 06:47 Assess/Plan/Problems-Billing Assessment: 45 yo M with hx of obesity, RONNA, hypothyroidism, asthma, migraines s/p R CHARANJIT, course complicated by excessive bleeding and TAURUS - Patient Problems (1) Acute blood loss anemia Comment: EBL 2000 ml during surgery. Received 2 units 4/7. Hb slightly lower today, no signs of bleeding. Patient to be set up with heme as outpatient ? bleeding disorder. (2) S/P total hip arthroplasty Comment: POD #3, management as per ortho (3) TAURUS (acute kidney injury) Comment: Creatinine down to 1.9 today, baseline 1.1 on outpatient labs. Likely 2 /2 blood loss ( which is comfirmed by FeNa at 0.3) Recommend BMP in 1 week. Avoid nephrotoxic medications. (4) Hypothyroidism Comment: Continue synthroid (5) RONNA (obstructive sleep apnea) Comment: continue CPAP Status and Disposition: Possible d/c home today by ortho
[2016-08-29] MEDS ORDERED: Levothyroxine TAB* 75 MCG TAB PO SCH (09:00)
[2016-08-29] MEDS: Docusate CAP* 100 MG PO SCH (09:24)
[2016-08-29] MEDS: Magnesium Hydroxide LIQ* 30 ML UDC PO SCH (09:24)
--- NOTE | 2016-08-29 10:35 | PN ---
Progress Note - Progress Note SOAP: Subjective: [45 y/o male s/p L CHARANJIT 08/[address] Ellsworth. Patient denies SOB, lightheaded, feels OK to go home. Working well with PT, pain under control with current medication. VSS overnight, H&H stable. ] Objective: [General- well appearing, NAD, sitting in chair comfortably MSK- Surgical dressing removed, moderate amount of dried blood at superior portion of incision, small amount of sero/ang drainage at inferior aspect, incision C/I, moderate amount of ecchymosis around incision, no active bleeding seen. Epidural site check, minimal amount of serousang drainage on band-aid, mild ecchymosis around site. + DF/PF b/l LE's, standing without much difficulty, minimal Edema LLE, neg homans b/l, sensation intact. Laboratory Results - last 24 hr 08/28/16 08/29/16 08/29/16 13:00 06:47 06:47 Hgb 7.8 L Hct 24 L INR (Anticoag Therapy) 1.61 H Sodium Potassium Chloride Carbon Dioxide Anion Gap BUN Creatinine Est GFR ( Amer) Est GFR (Non-Af Amer) BUN/Creatinine Ratio Glucose Calcium Total Bilirubin AST ALT Alkaline Phosphatase Total Protein Albumin Globulin Albumin/Globulin Ratio Ur Random Creatinine 140.35 Ur Random Sodium 54 08/29/16 06:47 Hgb Hct INR (Anticoag Therapy) Sodium 136 Potassium 4.0 Chloride 104 Carbon Dioxide 28 Anion Gap 4 BUN 18 Creatinine 1.97 H Est GFR ( Amer) 47.3 Est GFR (Non-Af Amer) 36.8 BUN/Creatinine Ratio 9.1 Glucose 106 H Calcium 7.9 L Total Bilirubin 0.30 AST 37 ALT 12 Alkaline Phosphatase 40 Total Protein 5.2 L Albumin 2.8 L Globulin 2.4 Albumin/Globulin Ratio 1.2 Ur Random Creatinine Ur Random Sodium Vital Signs Temp 98.2 F 08/29/16 07:30 Pulse 81 08/29/16 07:30 Resp 18 08/29/16 09:24 BP 111/61 08/29/16 07:30 Pulse Ox 93 08/29/16 07:30 Intake & Output 08/28/16 08/29/16 08/29/16 18:59 06:59 18:59 Intake Total 1370 2012 0 Output Total 1450 Balance -80 2012 0 Intake: IV Fluids 450 1513 LR 450 1513 Oral 920 500 0 Output: Urine 1450 Other: Estimated Void Medium Large # Voids 1 1 ] Assessment: [45 y/o male s/p L CHARANJIT 08/[address] Ellsworth] Plan: - DVT prophylaxis- Coumadin 8mg tonight, lovenox today, INR tuesday - Continue current pain regimen - Increase fluids at home to aide in kidney recovery - continue PT/ OT - FOllow up with Dr. Ellsworth 09/03- will be called for appointment ] Active Medications Generic Name Dose Route Start Last Admin Trade Name Freq PRN Reason Stop Dose Admin Acetaminophen 650 mg 08/26/16 14:14 Tylenol Tab* PO Q4H PRN mild pain or fever Albuterol 2.5 mg 08/26/16 14:56 Ventolin 2.5 Mg/3 Ml Neb.Elizabeth* INH Q2H PRN SOB/WHEEZING Bisacodyl 10 mg 08/26/16 14:19 Dulcolax Supp* OK DAILY PRN constipation Diphenhydramine HCl 12.5 mg 08/26/16 14:19 Benadryl Iv* IV Q6H PRN PRURITIS Diphenhydramine HCl 25 mg 08/26/16 14:19 Benadryl Po* PO Q6H PRN INSOMNIA Docusate Sodium 100 mg 08/26/16 21:00 08/29/16 09:24 Colace Cap* PO 100 mg BID [facility] Administration Duloxetine HCl 20 mg 08/26/16 21:00 08/28/16 22:00 Cymbalta Cap* PO 20 mg BEDTIME [facility] Administration Gabapentin 400 mg 08/26/16 21:00 08/28/16 22:00 Neurontin Cap(*) PO 400 mg BEDTIME [facility] Administration Lactated Ringer's 1,000 mls @ 100 mls/hr 08/26/16 15:00 08/29/16 05:15 Lactated Ringers 1000 Ml Bag* IV 100 mls/hr PER RATE [facility] Administration Lactulose 30 ml 08/26/16 14:19 Lactulose* PO Q6H PRN constipation Levothyroxine Sodium 75 mcg 08/29/16 09:00 Synthroid Tab* PO DAILY@0600 [facility] Magnesium Hydroxide 30 ml 08/26/16 21:00 08/29/16 09:24 Milk Of Magnesia Liq* PO 30 ml BID [facility] Administration Morphine Sulfate 5 mg 08/26/16 14:19 Morphine Inj (Syringe)* IV Q2H PRN PAIN Ondansetron HCl 4 mg 08/26/16 14:19 08/27/16 04:07 Zofran Inj* IV 4 mg Q6H PRN Administration nausea Ondansetron HCl 4 mg 08/26/16 14:19 Zofran Tab* PO Q6H PRN NAUSEA Oxycodone HCl 10 mg 08/26/16 14:19 08/29/16 09:24 Roxycodone Tab* PO 10 mg Q4H PRN Administration moderate to severe pain Oxycodone/Acetaminophen 2 tab 08/26/16 14:14 08/29/16 03:08 Percocet 5/325 Tab* PO 2 tab Q4H PRN Administration moderate pain Pharmacy Profile Note 1 note 08/27/16 17:00 08/28/16 17:54 Coumadin Daily Reminder* FOLLOW UP 1 note 1700 [facility] Administration Polyethylene Glycol/Electrolytes 17 gm 08/26/16 14:19 Miralax* PO DAILY PRN Constipation Topiramate 50 mg 08/26/16 21:00 08/28/16 22:00 Topamax(*) PO 50 mg BEDTIME [facility] Administration
--- NOTE | 2016-08-30 04:34 | DS ---
DISCHARGE SUMMARY: DATE OF ADMISSION: 08/26/16 DATE OF DISCHARGE: 08/29/16 CHIEF COMPLAINT: 1. Left hip osteoarthritis. 2. Asthma. 3. Hypothyroidism. 4. Sleep apnea. 5. Migraines. DISCHARGE DIAGNOSES: 1. Status post left total hip arthroplasty. 2. Hypothyroidism. 3. Asthma. 4. Migraines. PROCEDURE: Left total hip arthroplasty. BRIEF HISTORY: Mr. Renteria is very pleasant 45-year-old gentleman with severe end - stage degenerative osteoarthritis of the left hip who failed conservative treatment and elected to undergo left total hip arthroplasty on 08/26/[address] Ashley Ellsworth. HOSPITAL COURSE: Mr. Renteria was admitted to [facility] on 08/26/16 where he underwent a left total hip arthroplasty. Postoperatively, he recovered on the surgical short stay unit. His postoperative course was complicated by an estimated blood loss of 2000 cc intraoperatively and the patient required a transfusion of 2 units packed blood red cells on 08/27/16. On postoperative day 2, his Porter was removed and the patient was voiding well on his own without difficulty. He was tolerating a regular diet and his pain was controlled with p.o. Percocet. He was restarted on his home medications. He was noted to have acute symptomatic anemia, which responded to 2 units of packed red blood cells with the patient being asymptomatic afterwards. The patient was also noted to have acute kidney injury with his creatinine rising from 1.1 to 2.2 on 08/27/16 and decreasing on 08/29/16 to 1.97. He advanced appropriately with occupational and physical therapy. His DVT prophylaxis was managed with Lovenox and Coumadin and by postoperative day 3, he was orthopedically and medically stable for discharge home with home services. PHYSICAL EXAMINATION: General: Well-appearing, in no acute distress. Alert and oriented x2, resting in his chair comfortably. On the date of discharge, vital signs were temperature of 98.2, pulse of 81, respirations 18, blood pressure of 111/61 and pulse oxygenation was 93% on room air. Examination of the left lower extremity demonstrated the incision being clean and intact with a small amount of dry blood at the superior aspect of the incision and a small amount of serosanguineous drainage at the inferior aspect and moderate amount of ecchymosis surrounding the incision with no active bleeding seen. The area was re-dressed. Minimally tender to palpation. The epidural site was checked with a minimum amount of serosanguineous drainage noted on the Band-Aid, which had been on the wound for 24 hours, minimal ecchymosis around the sites. Left lower extremity showed positive dorsiflexion and dorsiflexion in bilateral lower extremities. The patient was able to stand without difficulty, minimal edema on the left lower extremity, negative Homans sign bilaterally and sensation was grossly intact, bilateral lower extremities. LABORATORY DATA: On the date of discharge, hemoglobin of 7.8, and hematocrit of 74 with an INR of 1.61. RADIOGRAPHS: Postoperative x-rays revealed left hip arthroplasty. DISCHARGE MEDICATIONS: 1. Cymbalta 20 mg p.o. q.h.s. 2. Colace 100 mg p.o. b.i.d. 3. Gabapentin 400 mg p.o. q.h.s. 4. Synthroid 75 mcg p.o. daily. 5. Topamax mg p.o. q.h.s. 6. Percocet 5/325 one to two tablets p.o. q.4 hours p.r.n. pain. 7. Magnesium oxide 100 mg p.o. b.i.d. 8. Singulair 10 mg p.o. daily. 9. Riboflavin 400 mg p.o. daily. 10. Coumadin 2 mg tablets 1 to 3 tablets p.o. q.5 p.m. daily per physician's instructions. CONDITION ON DISCHARGE: Stable. DISCHARGE INSTRUCTIONS: Mr. Renteria is a very pleasant 45-year-old gentleman, postoperative day 3, status post left total hip arthroplasty, which was complicated by intraoperative blood loss. The patient is orthopedically and medically stable for discharge to go home with home services. His labs and vital signs are stable. He will restart his home medications. He will take 8 mg of Coumadin tonight and will have an INR drawn on Tuesday. He will have INR draws every Tuesday and with visiting home nurse services. Visiting home nurse services was requested to do a repeat H and H and BMP on prior to the patient's followup visit with Dr. Ellsworth on 09/03/16. He will remain weightbearing as tolerated on the left lower extremity. He will have home physical therapy twice a week. He will take Percocet as needed for pain control. He will take Colace up to 3 times a day as needed for constipation. He will follow up with Dr. Ellsworth on 09/03/16 for an incision check and suture removal. He was instructed to go to the ER should he develop chest pain or shortness of breath. Should he develop fever, increasing pain or increasing redness, he is to call the office immediately. TERESITA WINN [id number]/[facility] #: [id number] MTDAlexia
== END 2016-08-29 13:25 | disposition home health service (06) | DRG 470 ==
LOC: AA 08:13 → SSU 17:20
PROVIDERS: ADMIT Orthopaedic Surgery Adult Reconstructive Orthopaedic Surgery; ATTEND Orthopaedic Surgery Adult Reconstructive Orthopaedic Surgery
PROC: 0SRB04A Replacement of Left Hip Joint with Ceramic on Polyethylene Synthetic Substitute, Uncemented, Open Approach (ICD-10-PCS; principal; 2016-08-26 09:30)
PROC: 30233N1 Transfusion of Nonautologous Red Blood Cells into Peripheral Vein, Percutaneous Approach (ICD-10-PCS; 2016-08-27)
DX: M16.12 Unilateral primary osteoarthritis, left hip (principal); N17.9 Acute kidney failure, unspecified; E66.9 Obesity, unspecified; Z96.641 Presence of right artificial hip joint; K76.0 Fatty (change of) liver, not elsewhere classified; D62 Acute posthemorrhagic anemia; M96.810 Intraoperative hemorrhage and hematoma of a musculoskeletal structure complicating a musculoskeletal system procedure; J45.909 Unspecified asthma, uncomplicated; E03.9 Hypothyroidism, unspecified; G47.33 Obstructive sleep apnea (adult) (pediatric); G43.909 Migraine, unspecified, not intractable, without status migrainosus; I45.10 Unspecified right bundle-branch block; G89.29 Other chronic pain; M25.752 Osteophyte, left hip; M24.852 Other specific joint derangements of left hip, not elsewhere classified; Y83.1 Surgical operation with implant of artificial internal device as the cause of abnormal reaction of the patient, or of later complication, without mention of misadventure at the time of the procedure; Y92.234 Operating room of hospital as the place of occurrence of the external cause; Z68.34 Body mass index [BMI] 34.0-34.9, adult; Z82.61 Family history of arthritis; Z80.9 Family history of malignant neoplasm, unspecified; Z82.49 Family history of ischemic heart disease and other diseases of the circulatory system
CPT/HCPCS: 36415; 72170; 80048; 80053; 82570; 84300; 85014; 85018; 85610; 86850; 86900; 86901; 86922; 94760; A9270-GY; C1713; C1776; J0461; J0690; J1100; J1240; J1885; J2250; J2405; J2704; J3010; P9040

== ENCOUNTER 2017-09-06 08:00 | Inpatient (IN) | payer OTHER ==
--- NOTE | 2017-08-28 22:16 | HP ---
HISTORY AND PHYSICAL: DATE OF ADMISSION/PROCEDURE: 09/06/17 ATTENDING PROVIDER: Ashley Ellsworth MD * (DICTATED BY TERESITA MURCIA) HISTORY OF PRESENT ILLNESS: Mr. Renteria is a 46-year-old gentleman with right hip pain that has been ongoing for several years. He has left total hip arthroplasty that has been doing well. He reports 7/10 pain in the lateral right hip and groin. He is no longer able to walk or climb stairs without severe pain. He has failed conservative management which has included intraarticular injections, physical therapy, anti-inflammatories, pain medication, and ambulatory assistive devices without relief of pain. He would like to proceed with undergoing a right total hip arthroplasty on 09/06/17. PAST MEDICAL HISTORY: 1. Osteoarthritis. 2. Asthma. 3. Hypothyroidism. PAST SURGICAL HISTORY: 1. Deviated septum surgery x3. 2. Right elbow surgery, ORIF. 3. Right knee surgery, ACL reconstruction. 4. Right knee surgery, lateral release. 5. Appendectomy. 6. Left total hip arthroplasty. MEDICATIONS: 1. Percocet 5/325 one to two tabs by mouth q.12 hours as needed for pain p.r.n. 2. Amoxicillin 500 mg 4 pills 1 hour before a dental or GI procedure. 3. Topiramate 50 mg. 4. Duloxetine 20 mg 1 by mouth every day. 5. Levothyroxine sodium 75 mcg 1 by mouth every day. 6. Montelukast sodium 10 mg 1 by mouth every day. 7. Gabapentin. 8. Folic acid. 9. Vitamin D. ALLERGIES: No known drug allergies. FAMILY HISTORY: Maternal side: Heart disease. Paternal side: Cancer and rheumatoid arthritis. SOCIAL HISTORY: The patient lives with his . 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 He denies any tobacco or recreational drug use. He denies any alcohol use. He normally ambulates independently. REVIEW OF SYSTEMS: General: The patient denies any fevers, chills, or night sweats. No known anesthesia problems. HEENT: The patient denies any headaches , lightheadedness, or syncopal episodes. Cardiothoracic: The patient denies any chest pain, heart palpitations or edema. Pulmonary: The patient denies any shortness of breath with exertion, chronic cough, or COPD. GI: The patient denies any nausea, vomiting, diarrhea or constipation. : The patient denies any nocturia, urinary frequency or urgency. MSK: The patient admits to right groin pain and hip pain. Denies any chronic or intermittent back pain or fractures. Neuro: The patient denies any numbness, paresthesias, or seizures. Integument: The patient denies any abrasions, lesions, rashes, lumps, or open sores. PHYSICAL EXAMINATION GENERAL: The patient is alert and oriented x3 with appropriate mood and affect , appropriate dress and hygiene. HEENT: Atraumatic, normocephalic. Hearing and vision grossly intact. PULMONARY: Lungs are clear to auscultation bilaterally with no wheezes, rales, or rhonchi. CARDIO: Regular rate and rhythm. Normal S1 and S2. No appreciable S3 or S4. No murmurs, rubs, or gallops. MUSCULOSKELETAL: Right lower extremity: Inspection of the right lower extremity reveals no erythema or ecchymosis. Skin is warm, dry and intact. There are no abrasions or open wounds present. He has range of motion of 80 degrees of flexion and 25 degrees of external rotation, and 0 degrees of internal rotation, pain severely with all range of motion. He is able to actively flex and abduct the hip, although both of these cause severe pain. He is neurovascularly intact distally with 2+ dorsalis pedis pulse. IMAGING: Multiple views of the patient's right hip were reviewed today on the PAC system. They show severe degenerative osteoarthritis with joint space narrowing and a large osteophyte along the superior lateral acetabulum. ASSESSMENT: Right hip severe end-stage osteoarthritis. PLAN: Mr. Renteria is a 46-year-old gentleman scheduled for upcoming right total hip arthroplasty on 09/06/17. Informed consent was obtained from the patient. He understands the risks of surgery include but are not limited to bleeding, infection, damage to nearby structures, continued pain, need for further surgery , intraoperative fracture, nerve palsy, hardware failure or loosening, dislocation, leg length discrepancy, stroke, heart attack, blood clot or . He continues to wish to proceed with a surgery. The patient will follow up 10 to 14 days postop for suture removal and reevaluation. TERESITA MURCIA [id number]/[facility] #: [id number] CB
[~2017-09-06 08:00] MED LIST changes: +Buffered Lidocaine 0.9% SYRIN* 5 ML/SYR SYRINGE INTRADERM ONE; -Buffered Lidocaine 1% SYRIN* 3 ML/SYR SYRINGE INTRADERM ONE; +DiMENhydriNATE IV* 50 MG/ML VIAL IV PUSH PRN; -Famotidine IV* 10 MG/ML 2 ML (20 mg) IV ONE; -Famotidine IV* 10 MG/ML 2 ML (20 mg) ONE; +Famotidine TAB* 20 MG PO ONE; -Metoclopramide TAB* 10 MG ONE; -Metoclopramide TAB* 10 MG PO ONE; +Morphine INJ* 2 MG/ML 1 ML CARPUJECT IV PRN; +Naloxone* 0.4 MG/ML 1 ML VIAL IV PRN; +PROCHLORPERAZINE INJ 5 MG/ML 2 ML VIAL IV PRN; +Scopolamine 1.5 mg* PATCH TRANSDERM PRN; -ceFAZolin 2 GM PREMIX(*) 2 GM/50 ML BAG IVPB ONE; +fentaNYL* 50 MCG/ML 2 ML VIAL (100 MCG VIAL) IV PRN; +oxyCODONE/Acetamin 5/325 MG* TAB PO PRN
--- OUTSIDE RECORDS SUMMARY | 2017-09-06 08:04 | XMS REPORT ---
:1970 External Reference #:[id number] Author Organization [employer] Address [address] [address] Phone [phone] Care Team Providers Name Role Phone Id Clinic - [facility] Primary Care Physician Unavailable Payers Type Date Identification Numbers Payment Provider Subscriber Commercial Policy Number: [id number] [employer] Program Timmy Renteria PayID: [id number] [address] [place] [address] Problems Date Description Provider Status Onset: 04/24/2015 Cervical spondylosis without myelopathy Lew Diaz M.D. Active Onset: 06/18/2016 Localized, primary osteoarthritis of the Ashley Ellsworth M.D. Active pelvic region and thigh Onset: 09/03/2016 Prosthetic arthroplasty of the hip Ashley Ellsworth M.D. 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 as needed pain Amoxicillin 11/12/ Active Capsules 500mg 4caps take 4 2016 pills, 2 g Seng, 1 hour M.D. before dental or gi procedure Topiramate / Active 50mg Unknown 0000 Duloxetine HCL / Active Caps DR 20mg 1 by mouth Unknown 0000 Part every day Levothyroxine / Active Tablets 75mcg 1 by mouth Unknown Sodium 0000 every day Montelukast / Active Tablets 10mg 1 by mouth Unknown Sodium 0000 every day Gabapentin / Active Unknown 0000 Folic Acid / Active Capsules Unknown 0000 Meloxicam 06/22/ Hx Tablets 15mg 30tabs 1 by mouth M25.552 Ashley 2017 - every day Seng, 08/07/ M.D. 2018 Percocet 11/12/ Hx Tablets 5-325mg 90tabs 1-2 tabs M25.552 Ashley 2016 - by mouth Seng, 05/11/ qdaily as M.D. 2016 needed pain Indomethacin 10/20/ Hx Capsules 25mg 90caps 1 cap by Ashley 2016 - mouth Seng, 05/11/ three M.D. 2017 times a day Coumadin 08/20/ Hx Tablets 2mg 90tabs take 1-3 Ashley 2016 - tabs by Seng, 09/20/ mouth at 5 M.D. 2017 at night as directed Percocet 08/20/ Hx Tablets 5-325mg 90tabs 1-2 by Ashley 2016 - mouth Seng, 09/20/ every 4-6 M.D. 2017 hours as needed pain Colace 08/20/ Hx Capsules 100mg 90caps 1 tab by Ashley 2016 - mouth 2-3 Seng, 05/11/ times a M.D. 2016 day as needed Percocet 06/18/ Hx Tablets 5-325mg 90tabs 1-2 tabs M25.551 Ashley 2016 - by mouth Seng, 09/20/ [id number] as M.D. 2016 needed pain Synthroid / Hx Tablets 50mcg 1 by mouth Jackie, 0000 - every day Marta 06/17/ DIAMOND Dempsey 2016 Proair HFA / Hx Aerosol 108(90Base inhale 2 Jackie - ) mcg/Act puffs by Marta 06/17/ mouth DIAMOND Dempsey 2016 every 4 hours as needed Symbicort / Hx Aerosol 160-4.5mcg 2 puff Jackie, 0000 - /Act inhaled Marta 06/17/ twice a DIAMOND Dempsey 2016 day Montelukast / Hx Tablets 10mg 1 by mouth Jackie, Sodium 0000 - every day Marta 06/17/ DIAMOND Dempsey 2016 Butalbital/Acet / Hx Tablets 50-325-40m take 1-2 Jackie, aminophen/Caffe 0000 - g tablets by Marta ine 06/17/ mouth DIAMOND Dempsey 2016 every 6 hours if needed maximum daily dose of 6 Riboflavin / Hx Capsules 100mg 2 every Unknown 0000 - day 2016 Magnesium Oxide / Hx Capsules 400mg by mouth Unknown 0000 - every day 2016 Magnesium Oxide / Hx 100mg x2 Unknown 0000 - 2017 Riboflavin / Hx Capsules 100mg 4 every Unknown 0000 - day 2017 Celebrex / Hx Capsules 100mg 1 tab by Unknown 0000 - mouth twice a 2017 day as needed Medications Administered in Office Medication Date Status Form Strength Qnty SIG Indications Ordering Provider Depomedrol Administered Injection Ashley 40MG 017 Gage Ellsworth Vital Signs Date Vital Result Comment 08/26/2017 Height 73 inches 6'1" Weight 266.25 lb Heart Rate 62 /min BP Systolic 112 mmHg BP Diastolic 80 mmHg Respiratory Rate 16 /min Body Temperature 97.1 F Pain Level 5 BMI (Body Mass Index) 35.1 kg/m2 08/08/2017 Height 73 inches 6'1" Weight 270.00 lb BP Systolic 138 mmHg BP Diastolic 80 mmHg Body Temperature 97.8 F BMI (Body Mass Index) 35.6 kg/m2 06/22/2017 Height 73 inches 6'1" BP Systolic 120 mmHg BP Diastolic 78 mmHg Respiratory Rate 17 /min Body Temperature 96.2 F Pain Level 2 05/11/2017 Height 73 inches 6'1" Weight 266.50 lb Heart Rate 72 /min BP Systolic Sitting 130 mmHg BP Diastolic Sitting 80 mmHg Body Temperature 97.8 F BMI (Body Mass Index) 35.2 kg/m2 12/29/2016 Height 73 inches 6'1" Weight 260.00 lb Respiratory Rate 18 /min Pain Level 7 BMI (Body Mass Index) 34.3 kg/m2 11/12/2016 Height 73 inches 6'1" Heart Rate 76 /min BP Systolic 122 mmHg BP Diastolic 74 mmHg Respiratory Rate 16 /min Body Temperature 96.9 F Pain Level 1 10/20/2016 Height 73 inches 6'1" Weight 250.00 lb BP Systolic 136 mmHg BP Diastolic 83 mmHg Respiratory Rate 15 /min Pain Level 0 BMI (Body Mass Index) 33.0 kg/m2 09/20/2016 Height 73 inches 6'1" Weight 268.00 lb Heart Rate 88 /min BP Systolic 130 mmHg BP Diastolic 80 mmHg Respiratory Rate 17 /min Body Temperature 97.9 F Pain Level 1 BMI (Body Mass Index) 35.4 kg/m2 09/03/2016 Height 73 inches 6'1" Weight 268.00 lb Heart Rate 114 /min BP Systolic 114 mmHg BP Diastolic 75 mmHg Body Temperature 97.7 F Pain Level 3 BMI (Body Mass Index) 35.4 kg/m2 08/20/2016 Height 71 inches 5'11" Weight 268.00 lb Heart Rate 76 /min BP Systolic 132 mmHg BP Diastolic 70 mmHg Respiratory Rate 18 /min Body Temperature 97.4 F Pain Level 3 BMI (Body Mass Index) 37.4 kg/m2 06/18/2016 Height 71 inches 5'11" Weight 270.00 lb Heart Rate 66 /min BP Systolic 136 mmHg BP Diastolic 81 mmHg BMI (Body Mass Index) 37.7 kg/m2 04/24/2015 Height 73 inches 6'1" Weight 281.00 lb Heart Rate 82 /min BP Systolic Sitting 140 mmHg BP Diastolic Sitting 80 mmHg Pain Level 3 neck BMI (Body Mass Index) 37.1 kg/m2 Results Test Date Test Result H/L Range Note Basic Metabolic Panel 09/29/2016 Sodium 137 mmol/L 133-145 Potassium 3.8 mmol/L 3.5-5.0 Chloride 104 mmol/L 101-111 Co2 Carbon Dioxide 27 mmol/L 22-32 Anion Gap 6 mmol/L 2-11 Glucose 96 mg/dL 70-100 Blood Urea Nitrogen 12 mg/dL 6-24 Creatinine 1.33 mg/dL High 0.67-1.17 BUN/Creatinine Ratio 9.0 8-20 Calcium 9.2 mg/dL 8.6-10.3 Egfr Non- 57.9 >60 Egfr 74.4 >60 1 Inr/Protime 09/29/2016 Inr 1.06 0.89-1.11 Laboratory test finding 09/29/2016 Partial Thrombo Time 32.9 seconds 26.0 -36.3 PTT Factor 11 Activity 100 % 55 - 150 2 Factor 8 Profile 09/29/2016 Coagulation Factor VIII Activi 132 % 55 - 200 von Willebrand Factor Antigen 126 % 55 - 200 VonWillibrand Factor Activity 114 % 55 - 200 von Willebrand Panel Interp See Comment 3 Inr/Protime 09/16/2016 Inr 1.56 High 0.89-1.11 Inr/Protime 09/13/2016 Inr 1.37 High 0.89-1.11 CBC Auto Diff 09/07/2016 White Blood Count 11.9 10^3/uL High 3.5-10.8 Red Blood Count 3.58 10^6/uL Low 4.0-5.4 Hemoglobin 10.1 g/dL Low 14.0-18.0 Hematocrit 31 % Low 42-52 Mean Corpuscular Volume 86 fL 80-94 Mean Corpuscular Hemoglobin 28 pg 27-31 Mean Corpuscular HGB Conc 33 g/dL 31-36 Red Cell Distribution Width 13 % 10.5-15 Platelet Count 540 10^3/uL High 150-450 Mean Platelet Volume 9 um3 7.4-10.4 Abs Neutrophils 8.7 10^3/uL High 1.5-7.7 Abs Lymphocytes 1.9 10^3/uL 1.0-4.8 Abs Monocytes 0.8 10^3/uL 0-0.8 Abs Eosinophils 0.4 10^3/uL 0-0.6 Abs Basophils 0.1 10^3/uL 0-0.2 Abs Nucleated RBC 0.01 10^3/uL Granulocyte % 72.9 % 38-83 Lymphocyte % 16.3 % Low 25-47 Monocyte % 6.5 % 1-9 Eosinophil % 3.3 % 0-6 Basophil % 1.0 % 0-2 Nucleated Red Blood Cells % 0 Renal Function Panel 09/07/2016 Albumin 3.8 g/dL 3.2-5.2 Calcium 8.9 mg/dL 8.6-10.3 Co2 Carbon Dioxide 26 mmol/L 22-32 Chloride 105 mmol/L 101-111 Glucose 115 mg/dL High 70-100 Phosphorus 3.7 mg/dL 2.5-5.0 Potassium 4.3 mmol/L 3.5-5.0 Sodium 137 mmol/L 133-145 Creatinine 09/07/2016 Creatinine 1.44 mg/dL High 0.67-1.17 Egfr Non- 52.8 >60 Egfr 67.9 >60 4 Type & Screen 08/20/2016 Patient Blood Type O Positive 5 Antibody Screen NEGATIVE 5 Laboratory test finding 08/20/2016 Partial Thrombo Time 32.5 seconds 26.0 -36.3 5, 6 PTT Inr/Protime 08/20/2016 Inr 1.02 0.89-1.11 5 1 Because ethnic data is not always readily available, this report includes an eGFR for both -Americans and non- Americans. The National Kidney Disease Education Program (NKDEP) does not endorse the use of the MDRD equation for patients that are not between the ages of 18 and 70, are , have extremes of body size, muscle mass, or nutritional status, or are non- or non-. According to the National Kidney Foundation, irrespective of diagnosis, the stage of the disease is based on the level of kidney function: Stage Description GFR(mL/min/1.73 m(2)) 1 Kidney damage with normal or decreased GFR 90 2 Kidney damage with mild decrease in GFR 60-89 3 Moderate decrease in GFR 30-59 4 Severe decrease in GFR 15-29 5 Kidney failure <15 (or dialysis) 2 Test Performed by: [place] [address] 3 No laboratory evidence of von Willebrand's disease based on normal results of factor VIII activity, von Willebrand factor activity, and von Willebrand factor antigen. Note: von Willebrand factor antigen and activity and/or factor VIII may be increased above baseline levels by acute or chronic inflammation, stress or adrenergic stimuli, or estrogen and oral contraceptive therapy, or liver disease. Recent administration of desmopressin or von Willebrand factor concentrate may mask the diagnosis of von Willebrand's disease. Suggest clinical correlation. Interpretation not reviewed by physician. Test Performed by: [facility] [address] [address] 4 Because ethnic data is not always readily available, this report includes an eGFR for both -Americans and non- Americans. The National Kidney Disease Education Program (NKDEP) does not endorse the use of the MDRD equation for patients that are not between the ages of 18 and 70, are , have extremes of body size, muscle mass, or nutritional status, or are non- or non-. According to the National Kidney Foundation, irrespective of diagnosis, the stage of the disease is based on the level of kidney function: Stage Description GFR(mL/min/1.73 m(2)) 1 Kidney damage with normal or decreased GFR 90 2 Kidney damage with mild decrease in GFR 60-89 3 Moderate decrease in GFR 30-59 4 Severe decrease in GFR 15-29 5 Kidney failure <15 (or dialysis) 5 AA 08/26 6 AA 08/26 Procedures Date CPT Code Description Status 12/29/2016 95477 Inject/Drain Joint/Bursa Major Completed 08/26/2016 27776 THR Total Hip Replacement Completed 08/26/2016 65055 THR Total Hip Replacement Completed Encounters Type Date Location Provider CPT E/M Dx Office Visit 08/08/2017 [facility] M.D. 23146 M16.11 1:30p [facility] M25.551 Office Visit 06/22/2017 8:45a [facility] M.D. 94053 Z96.642 [facility] M25.552 Office Visit 05/11/2017 8:45a [facility] M.D. 33514 Z96.642 [facility] M25.552 Z47.1 Office Visit 12/29/2016 9:00a [facility] M.D. 46828 M25.552 [facility] Z47.1 Z96.642 M70.62 Office Visit 08/29/2016 1:51p robyn Thapa M.D. 77633 D62 Hospitalists N17.9 G47.33 Office Visit 08/28/2016 1:51[place] [address] N17.9 Hospitalists D62 G47.33 Office Visit 08/27/2016 1:50p Nichole Noriega,[place] [address] N17.9 Hospitalists D62 G47.33 Z96.641 Office Visit 08/26/2016 1:48p [facility], 64136 G47.33 Assoc,pc Hospitalists N.P. J45.909 E03.9 Z96.641 Office Visit 06/18/2016 9:30a [facility] M.D. 16557 M25.551 [facility]. M25.552 M16.11 M16.12 Office Visit 04/24/2015 10:15a [facility] Lew Diaz, 46412 M47.812 Of L[facility] Almonte Plan of Care Future Appointment(s):09/16/2017 2:15 pm - Ashley Ellsworth M.D. at [facility]09/06/2017 11:45 am - Vasquez Villeda PA-C at [facility]09/06/2017 11:45 am - TERESITA Hernandez at [facility]09/06/2017 11:45 am - Ashley Ellsworth M.D. at [facility]08/26/2017 - Ashley Ellsworth M.D.M16.11 Unilateral primary osteoarthritis, right hipFollow up:Follow up: to ORM25.551 Pain in right hip
--- OUTSIDE RECORDS SUMMARY | 2017-09-06 08:05 | XMS REPORT ---
:1970 External Reference #:[id number] Author Organization [employer] Address [address] [address] Phone [phone] Care Team Providers Name Role Phone [facility] Primary Care Physician Unavailable Payers Type Date Identification Numbers Payment Provider Subscriber Commercial Policy Number: [id number] [employer] Program Timmy Renteria PayID: [id number] [address] [place] [address] Medigap Part B Effective: Policy Number: [facility] Timmy Renteria 2015 [id number] Ppo Group Number: [id number] [address] [address] PayID: [id number] [place] [address] Problems Date Description Provider Status Onset: 09/03/2016 Prosthetic arthroplasty of the hip Ashley Ellsworth M.D. Active Onset: 06/18/2016 Localized, primary osteoarthritis of the Ashley Ellsworth M.D. Active pelvic region and thigh Onset: 04/24/2015 Cervical spondylosis without myelopathy Lew Diaz M.D. 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 as [...] 08/20/ Hx Tablets 2mg 90tabs take 1-3 2016 - tabs by Seng, 09/20/ mouth [...] Ashley 2016 - by mouth Seng, 09/20/ u3wwric as M.D. 2017 needed pain Synthroid / Hx Tablets 50mcg 1 by mouth Jackie, 0000 - every day Marta 06/17/ DIAMOND Dempsey 2017 Proair HFA / Hx Aerosol 108(90Base inhale 2 Jackie, 0000 - ) mcg/Act puffs by Marta 06/17/ mouth DIAMOND Dempsey 2016 every 4 hours as needed Symbicort / Hx Aerosol 160-4.5mcg 2 puff [place], 0000 - /Act inhaled Mrata 06/17/ twice a DIAMOND Dempsey 2016 day [...] 1 tab by Unknown 0000 - mouth 08/07/ twice a 2017 day as needed Medications Administered in Office Medication Date Status Form Strength Qnty SIG Indications Ordering Provider Depomedrol Administered Injection Ashley 40MG Perez Ellsworth M.D. Vital Signs Date Vital Result Comment 08/08/2017 Height 73 inches 6'1" Weight 270.00 [...] Test Date Test Result H/L Range Note Factor 8 Profile 09/29/2016 Coagulation Factor VIII Activi 132 % 55 - 200 von Willebrand Factor Antigen 126 % 55 - 200 VonWillibrand Factor Activity 114 % 55 - 200 von Willebrand Panel Interp See Comment 1 Laboratory test finding 09/29/2016 Partial Thrombo Time 32.9 seconds 26.0 -36.3 PTT Factor 11 Activity 100 % 55 - 150 2 Inr/Protime 09/29/2016 Inr 1.06 0.89-1.11 Basic Metabolic Panel 09/29/2016 Sodium 137 mmol/L 133-145 Potassium 3.8 mmol/L 3.5-5.0 Chloride 104 mmol/L 101-111 Co2 Carbon Dioxide 27 mmol/L 22-32 Anion Gap 6 mmol/L 2-11 Glucose 96 mg/dL 70-100 Blood Urea Nitrogen 12 mg/dL 6-24 Creatinine 1.33 mg/dL High 0.67-1.17 BUN/Creatinine Ratio 9.0 8-20 Calcium 9.2 mg/dL 8.6-10.3 Egfr Non- 57.9 >60 Egfr 74.4 >60 3 Inr/Protime 09/16/2016 Inr 1.56 High 0.89-1.11 [...] Non- 52.8 >60 Egfr 67.9 >60 4 Inr/Protime 08/20/2016 Inr 1.02 0.89-1.11 5 Laboratory test finding 08/20/2016 Partial Thrombo Time 32.5 seconds 26.0 -36.3 5, 6 PTT Type & Screen 08/20/2016 Patient Blood Type O Positive 5 Antibody Screen NEGATIVE 5 1 No laboratory evidence of von Willebrand's disease [...] not reviewed by physician. Test Performed by: [place] [address] 2 Test Performed by: [place] [address] 3 Because ethnic data is not always readily [...] 15-29 5 Kidney failure <15 (or dialysis) 4 Because ethnic data is not always [...] Procedures Date CPT Code Description Status 12/29/2016 80208 Inject/Drain Joint/Bursa Major Completed 08/26/2016 49498 THR Total Hip Replacement Completed 08/26/2016 29479 THR Total Hip Replacement Completed Encounters Type Date Location Provider CPT E/M Dx Office Visit 08/08/2017 [facility] M.D. 72891 M25.551 1:30p Of [facility] M16.11 Office Visit 06/22/2017 8:45a [facility] M.D. 97352 Z96.642 C.[facility]A. M25.552 Office Visit 05/11/2017 8:45a [facility] M.D. 37219 Z96.642 C.M.A. M25.552 Z47.1 Office Visit 12/29/2016 9:00a [facility] M.D. 81475 M25.552 C.M.A. Z47.1 Z96.642 M70.62 Office Visit 08/29/2016 1:51p robyn Thapa M.D. 25380 D62 Hospitalists N17.9 G47.33 Office Visit 08/28/2016 1:51[place] [address] N17.9 Hospitalists D62 G47.33 Office Visit 08/27/2016 1:50p Nichole Noriega,[place] [address] N17.9 Hospitalists D62 G47.33 Z96.641 Office Visit 08/26/2016 1:48p [facility], [address]334 G47.33 Assoc,pc Hospitalists N.PErmias J45.909 E03.9 Z96.641 Office Visit 06/18/2016 9:30a [facility] M.D. 57833 M25.551 C.M.Tayler M25.552 M16.11 M16.12 Office Visit 04/24/2015 10:15a [facility] Lew Diaz, 56355 M47.812 Of [facility] Al[facility]te Plan of Care Future Appointment(s):08/26/2017 10:30 am - Ashley Ellsworth M.D. at [facility]AErmias08/08/2017 - Ashley Ellsworth M.D.M25.551 Pain in right hipFollow up:Follow up: 7-10 days before jfmhvgtL73.11 Unilateral primary osteoarthritis, right hipReferral:Matthew Villavicencio MD, Radiation Oncology
[2017-09-06] MEDS ORDERED: ceFAZolin 1 GM in Dextrose (*) 1 GM/50 ML BAG IVPB ONE (08:10)
[2017-09-06] MEDS ORDERED: Buffered Lidocaine 0.9% SYRIN* 5 ML/SYR SYRINGE ONE (08:10)
[2017-09-06] MEDS ORDERED: ceFAZolin 2 GM PREMIX (*) 2 GM/50 ML BAG IVPB ONE (08:10)
[2017-09-06] MEDS ORDERED: Famotidine TAB* 20 MG ONE (08:10)
[2017-09-06] MEDS ORDERED: fentaNYL* 50 MCG/ML 2 ML VIAL (100 MCG VIAL) ONE (08:46)
[2017-09-06] MEDS ORDERED: Midazolam* 1 MG/ML 10 ML VIAL (10 MG) ONE (08:46)
[2017-09-06] MEDS ORDERED: Bisacodyl SUPP* 10 MG SUPP PR PRN (11:27)
[2017-09-06] MEDS ORDERED: oxyCODONE/Acetamin 5/325 MG* TAB PO PRN (11:27)
[2017-09-06] MEDS ORDERED: Acetaminophen TAB* 325 MG PO PRN (11:27)
[2017-09-06] MEDS ORDERED: Ondansetron TAB* 4 MG PO PRN (11:27)
[2017-09-06] MEDS ORDERED: diPHENhydraMINE IV* 50 MG/ML 1 ml VIAL (BENADRYL) IV PRN (11:27)
[2017-09-06] MEDS ORDERED: Ondansetron INJ* 2 MG/ML VIAL IV PRN (11:27)
[2017-09-06] MEDS ORDERED: Magnesium Hydroxide LIQ* 30 ML UDC PO PRN (11:27)
[2017-09-06] MEDS ORDERED: Morphine VIAL* 4 MG/ML VIAL (1 ml vial) IV PRN (11:27)
[2017-09-06] MEDS ORDERED: Polyethylene Glycol 3350* 17 GM PACKET PO PRN (11:27)
[2017-09-06] MEDS ORDERED: Ondansetron INJ* 2 MG/ML VIAL ONE (12:38)
[2017-09-06] MEDS ORDERED: Dexamethasone IV* 4 MG/ML 1 ML (4 MG) ONE (12:38)
[2017-09-06] MEDS ORDERED: Propofol* 10 MG/ML 20 ML BTL IV PUSH ONE (12:38)
[2017-09-06] MEDS ORDERED: EPHEDrine (Pressors)* 50 MG/ML VIAL ONE (12:38)
[2017-09-06] MEDS ORDERED: ROPIVACAINE 5 MG/ML 30 ML BTL (0.5%) ONE (12:39)
--- NOTE | 2017-09-06 12:52 | RAD ---
HISTORY: Right hip arthroplasty COMPARISONS: August 08, 2017 VIEWS: 1, portable intraoperative view of the pelvis to hip arthroplasty FINDINGS: Single portable intraoperative view of the pelvis to hip arthroplasty 11:50 AM demonstrates bilateral hip arthroplasty. There is temporal femoral sizing component on the right. IMPRESSION: LIMITED PORTABLE VIEW OF THE PELVIS DURING HIP ARTHROPLASTY.
[2017-09-06] MEDS ORDERED: Morphine INJ* 10 MG/ML 1 ML CARPUJECT ONE (14:51)
--- NOTE | 2017-09-06 15:06 | RAD ---
HISTORY: Right total hip replacement COMPARISONS: August 08, 2017 VIEWS: 1, Single frontal view of the pelvis FINDINGS: BONE DENSITY: Normal. BONES: The patient is status post bilateral hip arthroplasty. JOINTS: There is no arthropathy. ALIGNMENT: There is no dislocation. SOFT TISSUES: Unremarkable. OTHER FINDINGS: None. IMPRESSION: STATUS POST BILATERAL HIP ARTHROPLASTY.
--- NOTE | 2017-09-06 15:09 | RAD ---
INDICATION: Right hip arthroplasty COMPARISON: September 06, 2017 TECHNIQUE: Portable AP and crosstable lateral imaging was performed. FINDINGS: There is right hip arthroplasty. Both femoral and acetabular components appear well seated IMPRESSION: POSTOPERATIVE RIGHT HIP ARTHROPLASTY.
[2017-09-06] MEDS: oxyCODONE/Acetamin 5/325 MG* TAB PO PRN ×2 (16:42→20:47)
[2017-09-06] MEDS ORDERED: Warfarin TAB(*) 6 MG PO ONE (17:00)
[2017-09-06] MEDS: ceFAZolin 1 GM in Dextrose (*) 1 GM/50 ML BAG IVPB SCH (18:26)
[2017-09-06] MEDS: Cyclobenzaprine TAB* 10 MG PO PRN (18:53)
[2017-09-06] MEDS: Gabapentin CAP(*) 300 MG PO SCH (20:48)
[2017-09-06] MEDS: Docusate CAP* 100 MG PO SCH (20:49)
[2017-09-06] MEDS: Magnesium Hydroxide LIQ* 30 ML UDC PO SCH (20:55)
[2017-09-06] MEDS ORDERED: DULoxetine DR CAP* 20 MG CAP.DR PO SCH (21:00)
--- NOTE | 2017-09-06 23:26 | OP ---
DATE OF OPERATION: 09/06/17 - ROOM #350 DATE OF : 68 SURGEON: Ashley Ellsworth MD DIRECTOR OF BANDS: TERESITA Lambert. Mr. Villeda did help throughout the procedure with preparation of the leg, wound retraction, manipulation of the hip, and wound closure. ANESTHESIOLOGIST: Dr. Rowan. ANESTHESIA: Spinal. PRE-OP DIAGNOSIS: Severe end-stage degenerative osteoarthritis of the right hip joint. POST-OP DIAGNOSIS: Severe end-stage degenerative osteoarthritis of the right hip joint. OPERATIVE PROCEDURE: Right total hip arthroplasty. ESTIMATED BLOOD LOSS: 400 cc. COMPLICATIONS: None. SPECIMEN: Femoral head and acetabular reaming sent to Pathology. HARDWARE USED: This is uncemented F?rsat Bu F?rsat total hip arthroplasty hardware. For the cup, a Tritanium cluster hole shell 58F. A single 25-mm Torx cancellous bone screw was used. For the insert, a 0-degree polyethylene insert Trident X3 40F. For the stem, an Accolade TMZF size 4 with a 127-degree neck. For the head, a ceramic Biolox V40, 40 +4 femoral head. BRIEF HISTORY/INDICATION: Mr. Renteria is a 46-year-old gentleman with years of increasingly severe right hip pain. The patient failed conservative treatment with anti-inflammatories, pain medication, intra-articular injection, and physical therapy. Due to continued pain and decreased quality of life, he elected to undergo a right total hip arthroplasty. Informed consent was obtained from the patient. He understood the risks of the procedure, included but were not limited to bleeding, infection, damage to nearby structures, continued pain, need for further surgery, intraoperative fracture, nerve palsy, hardware failure or loosening, dislocation, leg length discrepancies, stroke, heart attack, blood clot, and . He wished to proceed. INTRAOPERATIVE FINDINGS: Intraoperatively, the patient was noted to have severe end-stage arthritis with complete loss of cartilage along the acetabulum and femoral head. He has significant osteophyte formation along the acetabulum. DESCRIPTION OF PROCEDURE: Mr. Renteria was identified in the preanesthesia unit. His right lower extremity was marked as the correct operative side. Informed consent was signed and placed in the chart. The patient was taken to the operating room and placed under spinal anesthesia. A Porter catheter was placed. The patient was placed in the left lateral decubitus position on the peg board. All bony prominences were well padded. Right lower extremity was prepped and draped in the usual sterile fashion. Preop time-out was made to correctly identify the patient, side, and site. Appropriate perioperative antibiotics were given within 1 hour of incision. A standard posterior hip incision was made with a 10-blade. Electrocautery was used to dissect down to the lateral fascia layer. Lateral fascial layer was incised in line with the skin incision. Charnley retractor was placed. The piriformis and conjoint tendons were identified. These were elevated off the posterolateral femur using electrocautery. These were tagged with #5 Ethibond. Next, the electrocautery was used to make a standard posterolateral capsular flap and this was also tagged with #5 Ethibond. The hip was carefully dislocated. Lesser troch to center of the femoral head measured 62 mm. Oscillating saw was used to make the appropriate femoral neck cut. The femoral head was carefully removed. The femur was carefully retracted anteriorly. After appropriate placement of retractors, the acetabulum was well visualized. Long-handled knife was used to sharply remove any remaining labrum from the acetabular rim. The acetabulum was sequentially reamed up to a size 57. A 57 reamer did show a bleeding subchondral bone bed. A 57 trial had excellent fit. A 58F Trident cluster hole shell was chosen as the final implant. This was impacted into the acetabulum without complication. A single 25-mm screw was placed in the superoposterior quadrant for extra stability. A Trident X3 0-degree polyethylene liner 40F was chosen as the final implant. This was impacted into the acetabulum without difficulty. Stability of the liner was checked and rechecked and noted to be stable. Next, attention was turned to preparation of the femur. A canal finder was used to enter the proximal femur. The femur was sequentially broached up to a size 4. A size 4 broach had excellent fit. There was appropriate anteversion. A 127 trial neck was chosen as well as a 40 +0 femoral head trial. Lesser troch to center of the femoral neck measured 60 mm; therefore, a +4 head was chosen and lesser troch to center of the femoral head measured 64 mm. The hip was reduced and taken through a range of motion. The hip was stable in all positions. There was good soft tissue tension and appropriate leg lengths. The hip was carefully dislocated. All trials were removed. Final implant chosen was an Accolade TMZF size 4 with a 127-degree neck. This was impacted into the femur without difficulty. The stem was stable with appropriate anteversion. A 40 +4 ceramic Biolox V40 femoral head was chosen as the final femoral head. This was impacted onto the femoral neck without difficulty. The hip was reduced and taken through a range of motion. The hip was stable in all positions. The hip was copiously irrigated with sterile saline. Previously tagged tendons and capsule were reapproximated to the posterolateral femur through 2 trochanteric drill holes. The lateral fascial layer was closed using interrupted #1 Vicryls. The rest of the incision was closed in a layered fashion using 0 and 2- 0 Vicryls. Skin was closed using running 3-0 Monocryl and Dermabond. Sterile Adaptic, 4x4s, and paper tape were used to cover the incision. The patient's anesthesia was reversed without difficulty. He was taken to the PACU in stable condition. Intended weightbearing will be weightbearing as tolerated with posterior hip precautions. Intended DVT prophylaxis will be Coumadin with a Lovenox bridge. [id number]/[facility] [place] #: [id number] HOSPITALAlexia
[2017-09-07] MEDS: oxyCODONE/Acetamin 5/325 MG* TAB PO PRN ×5 (01:44→23:12)
[2017-09-07] MEDS: ceFAZolin 1 GM in Dextrose (*) 1 GM/50 ML BAG IVPB SCH ×2 (01:44→10:22)
[2017-09-07 05:39] LABS: Hematocrit 31 % (42-52); Hemoglobin 10.4 g/dl (14.0-18.0); Mean Platelet Volume 9.5 um3 (7.4-10.4); Platelet Count 205 10^3/ul (150-450)
[2017-09-07 05:43] LABS: INR 1.2 (0.77-1.02)
[2017-09-07] MEDS: Levothyroxine TAB* 75 MCG TAB PO SCH (05:47)
[2017-09-07] MEDS: oxyCODONE TAB* 5 MG TAB PO PRN ×2 (08:09→15:49)
[2017-09-07] MEDS: DULoxetine DR CAP* 20 MG CAP.DR PO SCH (08:10)
[2017-09-07] MEDS: Docusate CAP* 100 MG PO SCH ×2 (08:10→20:54)
[2017-09-07] MEDS: Magnesium Hydroxide LIQ* 30 ML UDC PO SCH ×2 (08:11→20:55)
--- NOTE | 2017-09-07 12:10 | PN ---
Progress Note - Progress Note Date of Service: 09/07/17 SOAP: Subjective: []Patient seen at bedside. He feels well and denies CP, SOB, dizziness, SOB, nausea. Pain is 4/10 after walking with physical therapy, which he considers tolerable. 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 Objective: [] Vital Signs Temp 99.4 F 09/07/17 07:36 Pulse 76 09/07/17 07:36 Resp 16 09/07/17 08:09 BP 100/43 09/07/17 07:36 Pulse Ox 94 09/07/17 07:36 Intake & Output 09/06/17 09/07/17 09/07/17 18:59 06:59 18:59 Intake Total 4000 2469 945 Output Total 2500 1200 1200 Balance 1500 1269 -255 Weight 269 lb 6.4 oz Intake: IV Fluids 4000 980 715 LR 4000 980 715 IVPB 49 ABX - CEFAZOLIN 49 Oral 1440 230 Output: Urine 1400 0 1200 Porter 600 1200 Estimated Blood Loss 500 Other: # Bowel Movements 0 Laboratory Last Values Hgb 10.4 g/dl (14.0-18.0) L 09/07/17 05:26 Hct 31 % (42-52) L 09/07/17 05:26 Plt Count 205 10^3/ul (150-450) 09/07/17 05:26 MPV 9.5 um3 (7.4-10.4) 09/07/17 05:26 INR (Anticoag Therapy) 1.20 (0.77-1.02) H 09/07/17 05:26 Sodium 137 mmol/L (139-145) L 09/07/17 05:25 Potassium 3.9 mmol/L (3.5-5.0) 09/07/17 05:25 Chloride 106 mmol/L (101-111) 09/07/17 05:25 Carbon Dioxide 26 mmol/L (22-32) 09/07/17 05:25 Anion Gap 5 mmol/L (2-11) 09/07/17 05:25 BUN 11 mg/dL (6-24) 09/07/17 05:25 Creatinine 1.11 mg/dL (0.67-1.17) 09/07/17 05:25 Est GFR ( Amer) 91.3 (>60) 09/07/17 05:25 Est GFR (Non-Af Amer) 71.0 (>60) 09/07/17 05:25 BUN/Creatinine Ratio 9.9 (8-20) 09/07/17 05:25 Glucose 150 mg/dL (70-100) H 09/07/17 05:25 Calcium 8.5 mg/dL (8.6-10.3) L 09/07/17 05:25 General: Well appearing, NAD RLE: Right hip dressing CDI without erythema or discharge. Thigh soft. Sensation intact throughout RLE. DF/PF intact. 2+ DP/PT pulse, capillary refill less than two seconds distally. BL LE: Calves supple and nontender without erythema, edema or palpable cords. Assessment: []POD 1 s/p right total hip arthroplasty Plan: []WBAT PT/OT Hip precautions lovenox, coumadin 6 mg Plan DC home tomorrow
[2017-09-07] MEDS: Enoxaparin(*) 30 MG/0.3 ML SYR SUBCUT SCH (12:45)
--- NOTE | 2017-09-07 12:50 | RAD ---
INDICATION: CT for radiation therapy mapping COMPARISON: Pelvis September 06, 2017 TECHNIQUE: Noncontrast, nondiagnostic, axial source images of the pelvis were acquired. FINDINGS: There is bilateral hip arthroplasty. No acute bony changes seen. The soft tissue elements are remarkable for air within the bladder which is likely iatrogenic related to instrumentation. There is a small amount of septation air likely correlate to hip arthroplasty. IMPRESSION: A SIM study was performed for radiation planning purposes.
[2017-09-07] MEDS ORDERED: Warfarin TAB(*) 6 MG PO ONE (18:30)
[2017-09-07] MEDS: Gabapentin CAP(*) 300 MG PO SCH (20:53)
[2017-09-07] MEDS: Cyclobenzaprine TAB* 10 MG PO PRN (20:54)
[2017-09-08] MEDS: oxyCODONE/Acetamin 5/325 MG* TAB PO PRN ×2 (05:44→14:03)
[2017-09-08] MEDS: Levothyroxine TAB* 75 MCG TAB PO SCH (05:45)
[2017-09-08 05:47] LABS: Hematocrit 28 % (42-52); Hemoglobin 9.7 g/dl (14.0-18.0); Mean Platelet Volume 9.5 um3 (7.4-10.4); Platelet Count 163 10^3/ul (150-450)
[2017-09-08 06:03] LABS: INR 1.33 (0.77-1.02)
[2017-09-08] MEDS: Docusate CAP* 100 MG PO SCH (09:04)
[2017-09-08] MEDS: oxyCODONE TAB* 5 MG TAB PO PRN (09:04)
[2017-09-08] MEDS: DULoxetine DR CAP* 20 MG CAP.DR PO SCH (09:04)
[2017-09-08] MEDS: Magnesium Hydroxide LIQ* 30 ML UDC PO SCH (09:05)
[2017-09-08] MEDS: Enoxaparin(*) 30 MG/0.3 ML SYR SUBCUT SCH (11:40)
[2017-09-08 12:31] VITALS: BP 98/55
--- NOTE | 2017-09-08 14:01 | PN ---
Progress Note - Progress Note Date of Service: 09/08/17 SOAP: Subjective: []Patient seen at bedside. He feels well and is ready for discharge. Denies right hip pain, leg numbness, dizziness, SOB, chest pain, nausea. Objective: [] Vital Signs Temp 97.8 F 09/08/17 11:22 Pulse 80 09/08/17 11:22 Resp 18 09/08/17 14:03 BP 98/55 09/08/17 11:22 Pulse Ox 91 09/08/17 11:22 Intake & Output 09/07/17 09/08/17 09/08/17 18:59 06:59 18:59 Intake Total 1305 1050 760 Output Total 1200 1450 400 Balance 105 -400 360 Intake: IV Fluids 715 LR 715 Oral 590 1050 760 Output: Urine 1200 1450 400 Other: # Bowel Movements 0 Laboratory Last Values Hgb 9.7 g/dl (14.0-18.0) L 09/08/17 05:38 Hct 28 % (42-52) L 09/08/17 05:38 Plt Count 163 10^3/ul (150-450) 09/08/17 05:38 MPV 9.5 um3 (7.4-10.4) 09/08/17 05:38 INR (Anticoag Therapy) 1.33 (0.77-1.02) H 09/08/17 05:38 Sodium 137 mmol/L (139-145) L 09/07/17 05:25 Potassium 3.9 mmol/L (3.5-5.0) 09/07/17 05:25 Chloride 106 mmol/L (101-111) 09/07/17 05:25 Carbon Dioxide 26 mmol/L (22-32) 09/07/17 05:25 Anion Gap 5 mmol/L (2-11) 09/07/17 05:25 BUN 11 mg/dL (6-24) 09/07/17 05:25 Creatinine 1.11 mg/dL (0.67-1.17) 09/07/17 05:25 Est GFR ( Amer) 91.3 (>60) 09/07/17 05:25 Est GFR (Non-Af Amer) 71.0 (>60) 09/07/17 05:25 BUN/Creatinine Ratio 9.9 (8-20) 09/07/17 05:25 Glucose 150 mg/dL (70-100) H 09/07/17 05:25 Calcium 8.5 mg/dL (8.6-10.3) L 09/07/17 05:25 General: Well appearing, NAD RLE: Right hip dressing changed. Incision CDI without erythema or discharge. Thigh soft. Sensation intact throughout RLE. DF/PF intact. 2+ DP/PT pulse, capillary refill less than two seconds distally. BL LE: Calves supple and nontender without erythema, edema or palpable cords. Assessment: []POD 2 s/p right total hip arthroplasty Plan: []WBAT PT/OT Hip precautions lovenox, coumadin 6 mg DC home
--- NOTE | 2017-09-08 22:57 | DS ---
DISCHARGE SUMMARY: DATE OF ADMISSION AND DATE OF SURGERY: 09/06/17 DATE OF DISCHARGE: 09/08/17 PROVIDER: Dr. Ashley Ellsworth.* (DICTATED BY TERESITA LEGGETT) [employer] IRONWORKER: TERESITA Lambert OPERATIVE PROCEDURE: Right total knee arthroplasty. HISTORY: Mr. Renteria is a 46-year-old gentleman with years of increasingly severe right hip pain. He has had conservative treatment with anti- inflammatories, pain medications, intra-articular injections, and physical therapy due to continued pain and decreased quality of life. He elected to undergo a right total hip arthroplasty. HOSPITAL COURSE: Mr. Renteria was admitted to [facility] on 09/06/17. He underwent a right total hip arthroplasty on the same date without complications. He recovered briefly in the PACU and then was transferred to the short-stay surgical unit in stable condition. On postop day 1, he underwent a single dose of radiation for prophylaxis of heterotopic ossification, which he tolerated well. Postop day 1, he is well appearing, in no acute distress. Right hip dressing was clean, dry, and intact without erythema or discharge. Thigh was soft. Sensation intact throughout the right lower extremity. Dorsiflexion and plantarflexion intact. 2+ dorsalis pedis pulse as well as posterior tibial pulse. Capillary refill less than 2 seconds distally. On postop day 2, the patient again well appearing, in no acute distress. Dressing was changed. Incision clean, dry, and intact without erythema or discharge. The patient's labs showed hemoglobin of 9.7, hematocrit 28. INR 1.33. Vital signs, temperature 97.8, pulse 80, respiratory rate 18, blood pressure 98/55, pulse ox 91%. He was seemed to be medically and orthopedically stable for discharge home. MEDICATIONS AT DISCHARGE: Include: 1. Cymbalta 40 mg p.o. at bedtime. 2. Levothyroxine 75 mcg p.o. daily. 3. Montelukast 10 mg p.o. daily. 4. Gabapentin 600 mg p.o. at bedtime. 5. Folic acid 1 mg p.o. daily. 6. Vitamin D 1000 units p.o. daily. 7. Topiramate 50 mg p.o. at bedtime. 8. Gabapentin 300 mg p.o. q.a.m. New medications at discharge: 1. Acetaminophen 650 mg p.o. q.4 hours p.r.n., max daily dose 4000 units from all sources. 2. Docusate 100 mg p.o. b.i.d. p.r.n. constipation. 3. Percocet 5/325 one to two tabs every 4 to 6 hours p.r.n., max daily dose 10. 4. Warfarin 2 mg tabs take 1 to 3 tabs daily. DISCHARGE PLAN: The patient will be weightbearing as tolerated. Okay to shower on postop day 3. Continue hip precautions. Visiting home nurse will come to do wound checks as well as to draw blood for INR on Tuesday and . Coumadin dosing will be 6 mg on 09/08/17, 2 mg daily on 09/09/17 to 09/11/17. Recheck INR on 09/12/17. Pain control with Percocet 5/325 one to two tabs every 4 to 6 hours as needed for pain, max daily dose 10 tabs per day. Follow up with Dr. Ellsworth within 10 to 14 days. TERESITA LEGGETT [id number]/[facility] #: [id number] [facility]
[2017-09-09] MEDS ORDERED: Scopolamine PATCH Remove* 1 NOTE MISC PATCH OFF ONE (05:55)
== END 2017-09-08 14:17 | disposition home health service (06) | DRG 470 ==
LOC: AA 08:00 → SSU 15:51
PROVIDERS: ADMIT Orthopaedic Surgery Adult Reconstructive Orthopaedic Surgery; ATTEND Orthopaedic Surgery Adult Reconstructive Orthopaedic Surgery
PROC: 0SR904A Replacement of Right Hip Joint with Ceramic on Polyethylene Synthetic Substitute, Uncemented, Open Approach (ICD-10-PCS; principal; 2017-09-06 10:00)
PROC: DPYC7ZZ Contact Radiation of Other Bone (ICD-10-PCS; 2017-09-07)
DX: M16.11 Unilateral primary osteoarthritis, right hip (principal); E03.9 Hypothyroidism, unspecified; J45.909 Unspecified asthma, uncomplicated; Z96.642 Presence of left artificial hip joint; Z80.9 Family history of malignant neoplasm, unspecified; Z82.61 Family history of arthritis; Z82.49 Family history of ischemic heart disease and other diseases of the circulatory system; G43.909 Migraine, unspecified, not intractable, without status migrainosus; K76.0 Fatty (change of) liver, not elsewhere classified; I45.10 Unspecified right bundle-branch block; G47.30 Sleep apnea, unspecified; E66.9 Obesity, unspecified; Z68.35 Body mass index [BMI] 35.0-35.9, adult; M25.751 Osteophyte, right hip; Z79.01 Long term (current) use of anticoagulants
CPT/HCPCS: 36415; 72170; 77014; 80048; 85014; 85018; 85049; 85610; A9270-GY; C1713; C1776; J0690; J1100; J1650; J2250; J2270; J2405; J2704; J2795; J3010